=== PATIENT | female | born 1960 | race Caucasian/White ===

== ENCOUNTER → 2019-10-03 10:17 | Outpatient (CLI) | payer OTHER, SELFPAY ==
--- NOTE | ~2019-10-03 | CT_ITS ---
EXAMINATION: CT chest w con DATE: 10/03/2019 10:53 INDICATION: Abnormal chest radiograph, history of melanoma TECHNIQUE: Transaxial computed tomographic images of the chest were obtained after the administration of 75 cc of Omnipaque 350 intravenous contrast. The dose-length product (DLP) was 208.07 mGy-cm. Ite rative reconstruction was used. COMPARISON: 11/21/2011 FINDINGS: The lungs are free of focal airspace opacities. There is mild dependent atelectasis. Trace pleural effusions are present. There is no pneumothorax. No pathologically enlarged thoracic lymph no esthela are identified. The heart size is normal. Fluid attenuation to the liver measuring up to 11 mm in the right hepatic lobe likely represent cysts. There is mild thoracic spondylosis. IMPRESSION: 1. Small pleural effusions, otherwise unremarkable chest CT. Reviewed, dictated and finalized at location A.
[2019-10-03 10:36] LABS: Estimated Glomerular Filt Rate 57
== END ==
PROVIDERS: PCP Physician Assistant; Visit Provider Surgery
DX: R91.8 Other nonspecific abnormal finding of lung field (principal); J90 Pleural effusion, not elsewhere classified
CPT/HCPCS: 36415; 71260; Q9967

== ENCOUNTER → 2019-12-06 07:28 | Outpatient (CLI) | payer BC, SELFPAY ==
--- NOTE | ~2019-12-06 | MM_ITS ---
EXAMINATION: MM screening geovanna BI w jian HISTORY: Screening mammogram TECHNIQUE: Craniocaudal and mediolateral oblique 3-D tomosynthesis images were obtained and synthetic 2-D images were generated. CAD analysis was submitted and interpreted. COMPARISON: 07/13/2018, 07/10/2017, 07/08/2016 bilateral digital screening mammogram examinations BREAST PARENCHYMAL COMPOSITION: There are scattered areas of fibroglandular density. FINDINGS: There is no evidence of suspicious mass, calcification, or architectural distortion to sugg est malignancy in either breast. There has been no suspicious interval change. IMPRESSION: 1. No mammographic evidence of malignancy. 2. Recommend routine screening mammography in one year. BI-RADS Category 1: Negative Reviewed, dictated and finalized at location A.
== END ==
PROVIDERS: PCP Physician Assistant; Visit Provider Obstetrics & Gynecology
DX: Z12.31 Encounter for screening mammogram for malignant neoplasm of breast (principal)
CPT/HCPCS: 77063; 77067

== ENCOUNTER → 2020-12-14 07:23 | Outpatient (CLI) | payer OTHER, SELFPAY ==
--- NOTE | ~2020-12-14 | MM_ITS ---
EXAMINATION: MM screening geovanna BI w jian HISTORY: Screening mammogram TECHNIQUE: Craniocaudal and mediolateral oblique 3-D tomosynthesis images were obtained and synthetic 2-D images were generated. CAD analysis was submitted and interpreted. COMPARISON: 07/11/2019, 07/13/2018, 07/10/2017 bilateral screening mammogram examinations BREAST PARENCHYMAL COMPOSITION: There are scattered areas of fibroglandular density.. FINDINGS: There is no evidence of suspicious mass, calcification, or architectural distortion to sugg est malignancy in either breast. There has been no suspicious interval change. IMPRESSION: 1. No mammographic evidence of malignancy. 2. Recommend routine screening mammography in one year. BI-RADS Category 1: Negative Reviewed, dictated and finalized at location A.
== END ==
PROVIDERS: PCP Physician Assistant; Visit Provider Obstetrics & Gynecology
DX: Z12.31 Encounter for screening mammogram for malignant neoplasm of breast (principal)
CPT/HCPCS: 77063; 77067

== ENCOUNTER 2021-02-06 01:17 | Day surgery (SDC) | payer OTHER, SELFPAY ==
[2021-01-24 14:14] VITALS: BMI 25.8
--- NOTE | 2021-02-05 13:28 | PM.HPGS ---
History of Present Illness History of Present Illness Consent: Risks, benefits, and alternatives have been discussed and questions answered. Patient agrees to proceed with procedure. Chief complaint: family hx of colon ca, neoplasm screening Narrative: Alessandra Alba is a 61 year old female was referred for colon cancers screening. She does have a family history of colon cancer in a grandparent. Also she had 2 polyps removed in 2013 Review of Systems Review of Systems: All systems reviewed & are unremarkable except as noted in HPI and below PMFSH Past Medical History Medical History Diabetes diet controlled Family History Family History Grandparent Family history of malignant neoplasm Carcinoma of colon Mother Family history of lupus erythematosus Other Family history of multiple sclerosis Social History Social History Smoking status: Never smoker Alcohol intake: current Drinks per week: 5 Living arrangements: with family Spiritual care concerns: No Meds Home Medications and Allergies Home Medications Medication Instructions Recorded Confirmed Type No Home Medications 01/24/21 02/06/21 History Allergies Allergy/AdvReac Type Severity Reaction Status Date / Time adhesive Allergy Unknown RASH Verified 02/06/21 08:42 latex Allergy Unknown Rash Verified 02/06/21 08:42 Penicillins Allergy Unknown Hives Verified 02/06/21 08:42 Sulfa (Sulfonamide Allergy Unknown Hives Verified 02/06/21 08:42 Antibiotics) Exam Resp: Auscultation: clear to auscultation bilaterally Cardio: Rate: regular rate Rhythm: regular rhythm GI: GI Palp: Yes Soft to palpation and No Tenderness to palpation present (GI) Assessment and Plan Assessment and plan (1) Colon cancer screening: Code(s): Z12.11 - Encounter for screening for malignant neoplasm of colon Status: Acute Assessment and Plan: Colonoscopy with possible biopsy or polypectomy or cautery or injection of substances.
[2021-02-06 08:43] VITALS: BP 126/104; PULSE 114; RESP 17; TEMP 36.4; O2SAT 98; BMI 26.1
[2021-02-06] MEDS: LACTATED RINGERS 1,000 ML 150 ML IV CONT (08:54)
--- NOTE | 2021-02-06 09:12 | P.PNAN_ITS ---
Anes - Initial Pre Proc Eval Procedure: Operation Date: 02/06/21 10:00 Proposed Procedures p Screening Colonoscopy - Shorty Ayala MD Date/Time: 02/06/21 09:12 Surgeon: Shorty Ayala MD Pre Op Diagnosis: family hx of colon ca, neoplasm screening Patient Data Age: 61 Gender: F Height: 1.73 m Weight: 77.9 kg Last Vital Signs Temp 97.6 F 02/06/21 08:43 Pulse 114 H 02/06/21 08:43 Resp 17 02/06/21 08:43 BP 126/104 H 02/06/21 08:43 Pulse Ox 98 02/06/21 08:43 Allergies Allergy/AdvReac Type Severity Reaction Status Date / Time adhesive Allergy Unknown RASH Verified 02/06/21 08:42 latex Allergy Unknown Rash Verified 02/06/21 08:42 Penicillins Allergy Unknown Hives Verified 02/06/21 08:42 Sulfa (Sulfonamide Allergy Unknown Hives Verified 02/06/21 08:42 Antibiotics) Home Medications Medication Instructions Recorded Confirmed Type No Home Medications 01/24/21 02/06/21 History Patient hx anesthesia problems: none Family hx anesthesia problems: none Results Review: All pre-operative results and documents have been reviewed as part of the pre-operative evaluation. [facility] Past Medical History Medical History (Updated 02/06/21 @ 09:12 by Saul Lomax MD) Diabetes diet controlled Family History Family History (Updated 10/13/13 @ 07:13 by DOCTOR UNKNOWN) Grandparent Family history of malignant neoplasm Carcinoma of colon Mother Family history of lupus erythematosus Other Family history of multiple sclerosis Social History Social History Smoking status: Never smoker Alcohol intake: current Drinks per week: 5 Living arrangements: with family Spiritual care concerns: No Anes - Eval Final PreProcedure Day of Procedure 02/06/21 09:12 Patient weight: normal Heart: regular rate and rhythm Lungs: clear to auscultation Airway: Mallampati scale class II Neurological: alert and oriented Last oral intake: >/= 8 hours ASA classification: III Emergent: no Anesthetic plan: proceed Anesthesia type and monitoring: general GIVS and standard monitoring Results Review: All pre-operative results and documents have been reviewed as part of the pre-operative evaluation. Informed Consent: The patient's anesthetic plan and its attendant risks and benefits were discussed with the patient/family/POA. Questions were solicited and answers provided to the satisfaction of the patient/family/POA.
[2021-02-06 10:10] VITALS: BP 86/51; PULSE 94; RESP 22; O2SAT 96
[2021-02-06 10:20] VITALS: BP 95/59; PULSE 63; RESP 21; O2SAT 97
[2021-02-06 10:30] VITALS: BP 121/74; PULSE 68; RESP 25; O2SAT 98
== END 2021-02-06 10:39 | disposition home or self-care (01) ==
PROVIDERS: PCP Physician Assistant; Visit Provider Internal Medicine Gastroenterology
PROC: 0DJD8ZZ Inspection of Lower Intestinal Tract, Via Natural or Artificial Opening Endoscopic (ICD-10-PCS; CPT 45378; principal; 2021-02-06 10:00)
DX: Z12.11 Encounter for screening for malignant neoplasm of colon (principal); K57.30 Diverticulosis of large intestine without perforation or abscess without bleeding; Z86.010 Personal history of colon polyps; Z80.0 Family history of malignant neoplasm of digestive organs
CPT/HCPCS: 45378; J2704; J7120

== ENCOUNTER → 2022-05-05 07:21 | Outpatient (CLI) | payer OTHER, SELFPAY ==
--- NOTE | ~2022-05-05 | MM_ITS ---
EXAMINATION: MM screening geovanna BI w jian HISTORY: Screening TECHNIQUE: Craniocaudal and mediolateral oblique 3-D tomosynthesis images were obtained and synthetic 2-D images were generated. CAD analysis was submitted and interpreted. COMPARISON: Comparison to multiple prior studies sequentially, with oldest reviewed study dated 07/05. BREAST PARENCHYMAL COMPOSITION: Breast composed of scattered areas of fibroglandular density FINDINGS: There is no evidence of suspicious mass, calcification, or architectural distortion to sugg est malignancy in either breast. There has been no suspicious interval change. IMPRESSION: 1. No mammographic evidence of malignancy. 2. Recommend routine screening mammography in one year. BI-RADS Category 1: Negative Reviewed, dictated and finalized at location A.
== END ==
PROVIDERS: PCP Physician Assistant; Visit Provider Obstetrics & Gynecology
DX: Z12.31 Encounter for screening mammogram for malignant neoplasm of breast (principal)
CPT/HCPCS: 77063; 77067

== ENCOUNTER 2023-06-10 11:12 | Outpatient (CLI) | payer OTHER, SELFPAY ==
--- NOTE | ~2023-06-10 | MM_ITS ---
EXAMINATION: MM screening geovanna BI w jian HISTORY: Screening mammogram TECHNIQUE: Craniocaudal and mediolateral oblique 3-D tomosynthesis images were obtained and synthetic 2-D images were generated. CAD analysis was submitted and interpreted. COMPARISON: 05/05/2022, 12/14/2020 bilateral screening mammogram examinations BREAST PARENCHYMAL COMPOSITION: There are scattered areas of fibroglandular density. FINDINGS: There is no evidence of suspicious mass, calcification, or architectural distortion to sugg est malignancy in either breast. There has been no suspicious interval change. IMPRESSION: 1. No mammographic evidence of malignancy. 2. Recommend routine screening mammography in one year. BI-RADS Category 1: Negative Reviewed, dictated and finalized at location A.
== END 2023-06-10 11:13 ==
LOC: MICIMG 11:13
PROVIDERS: PCP Physician Assistant; Visit Provider Obstetrics & Gynecology
DX: Z12.31 Encounter for screening mammogram for malignant neoplasm of breast (principal)
CPT/HCPCS: 77063; 77067

== ENCOUNTER 2023-10-06 07:02 | Outpatient (CLI) | payer OTHER, SELFPAY ==
--- NOTE | ~2023-10-06 | XR_ITS ---
XR foot RT min 3V 10/06/2023 07:15 Indication: Right foot pain Procedure: 4 views right foot Comparison: No prior studies for comparison. Findings: There is a displaced second metatarsal shaft fracture distally with callus formation. There is approximately one bone width dorsal displacement. No significant angulation. Osteopenia. Lisfranc joint intact. No foreign bodies. Impression: 1: Healing displaced right second metatarsal shaft fracture. Reviewed, dictated and finalized at location B. Impression: 1: Healing displaced right second metatarsal shaft fracture.
== END 2023-10-06 07:03 ==
PROVIDERS: PCP Physician Assistant; Visit Provider Physician Assistant
DX: S92.321A Displaced fracture of second metatarsal bone, right foot, initial encounter for closed fracture (principal); X58.XXXA Exposure to other specified factors, initial encounter
CPT/HCPCS: 73630

== ENCOUNTER 2024-07-29 07:27 | Outpatient (CLI) | payer OTHER, SELFPAY ==
--- NOTE | ~2024-07-29 | MM_ITS ---
EXAMINATION: MM screening geovanna BI w jian HISTORY: Screening TECHNIQUE: Craniocaudal and mediolateral oblique 3-D tomosynthesis images were obtained and synthetic 2-D images were generated. CAD analysis was submitted and interpreted. COMPARISON: Comparison to multiple prior studies sequentially, with oldest reviewed study dated 11/17. BREAST PARENCHYMAL COMPOSITION: Not dense: There are scattered areas of fibroglandular density. FINDINGS: The right breast is stable without evidence for malignancy. There is a new focal asymmetry centrally in the left breast on CC view, middle third, not visualized on MLO view. IMPRESSION: 1. New focal left breast asymmetry seen on CC view only. 2. Additional mammographic views and possible breast ultrasound are recommended. BI-RADS Category 0: Incomplete: Needs additional imaging evaluation. Reviewed, dictated and finalized at location [] IMPRESSION: 1. New focal left breast asymmetry seen on CC view only. 2. Additional mammographic views and possible breast ultrasound are recommended . BI-RADS Category 0: Incomplete: Needs additional imaging evaluation.
--- OUTSIDE RECORDS SUMMARY | 2024-07-29 07:33 | XMS_ITS | Data Portability ---
Author Organization [facility] Tian Cordero Address [address] [place] [address] Care Team Providers Care Pulpwood Buyer Name Role Phone ROSALINO IRIZARRY Primary Care Provider Unavailab le Assessment Encounter Date Assessment Date Assessment LastModified by Organization Details LastModified Time 04/23/2023 04/23/2023 Dr. darryl aguila Mar 2023, pap smear normal mammogram scheduled, due april, due 2025. eye exam UTD with Jose in [place] 2022. no retinopathy Not available 04/23/2023 09:24:00 10/29/2023 10/29/2023 Dr. darryl aguila Mar 2023, pap smear normal mammogram UTD spring colonoscopy 2020, due 2025. eye exam UTD with [facility] in [place] 2022. no retinopathy Not available 10/29/2023 09:26:23 04/28/2024 04/28/2024 Dr. darryl aguila Mar 2023, pap smear normal mammogram UTD spring colonoscopy 2020, due 2025. eye exam UTD with Jose in [place] 2022. no retinopathy Not available 05/16/2024 22:26:44 Plan of Treatment Reminders Order Date Submit Date Provider Last Modified By Organization Details Last Modified Time Details Appointments ANY 15 2024 08:00A M VALENTINO Tucker Not available Not available Not available Lab HbA1c (hemoglob in A1c), blood 2024 025 [facility], [address], [place], [address], 04/28/2024 09:33:56 microalbu min, urine 2024 025 [facility], [address], [place], [address], 04/28/2024 09:33:55 CMP, serum or plasma 2024 025 [facility], [address], [place], [address], 04/28/2024 09:33:56 CBC w/ auto diff 2024 025 [facility], [address], [place], [address], 04/28/2024 09:33:56 CMP, serum or plasma 2024 025 [facility], [address], [place], [address], 04/28/2024 09:33:56 lipid panel, serum 2024 025 [facility], [address], [place], [address], 04/28/2024 09:33:56 measles + mumps + rubella virus IgG panel, QN, serum or plasma 2024 025 [email or web address] [facility], [address], [place], [address], 05/18/2024 10:45:29 HbA1c (hemoglob in A1c), blood 202316/2 024 [email or web address] [facility], [address], [place], [address], 04/27/2024 14:48:10 HbA1c (hemoglob in A1c), blood 2023 025 RODOLFO [facility], [address], [place], [address], 04/26/2024 13:08:29 CMP, serum or plasma 2023 024 [email or web address] [facility], [address], [place], [address], 04/27/2024 14:48:20 CBC w/ auto diff 2023 025 RODOLFO [facility], [address], [place], [address], 04/26/2024 13:08:30 CMP, serum or plasma 2023 025 RODOLFO [facility], [address], [place], [address], 04/26/2024 13:08:26 TSH + free T4, serum 2023 025 GARIBALDI [facility], [address], [place], [address], 04/26/2024 13:08:25 vitamin B12 + folate, serum or blood 2023 025 GARIBALDI [facility], [address], [place], [address], 04/26/2024 13:08:28 lipid panel, serum 2023 024 [email or web address] [facility], [address], [place], [address], 04/27/2024 14:48:15 lipid panel, serum 2023 025 RODOLFO [facility], [address], [place], [address], 04/26/2024 13:08:24 HbA1c (hemoglob in A1c), blood 2023 024 [facility], [address], [place], [address], 10/27/2023 12:14:17 microalbu min, urine 2023 024 [facility], [address], [place], [address], 10/28/2023 10:05:59 CBC w/ auto diff 2023 024 [facility], [address], [place], [address], 10/27/2023 12:14:18 CMP, serum or plasma 2023 024 [facility]DI [facility], [address], [place], [address], 10/27/2023 12:14:15 vitamin B12 + folate, serum or blood 2023 024 [facility], [address], [place], [address], 10/27/2023 12:14:16 TSH + free T4, serum 2023 024 [facility], [address], [place], [address], 10/27/2023 12:14:14 lipid panel, serum 2023 024 [facility], [address], [place], [address], 10/27/2023 12:14:14 Referral None recorded. Procedures None recorded. Surgeries None recorded. Imaging CT, coronary calcium score 2024 025 [facility], [address], [facility] [address], [address], 05/29/2024 16:46:24 DEXA 2023 024 [facility], [address] [place], [address], 11/17/2023 21:29:50 XR, foot, 3 or more view 2023 024 [facility], [address], [facility] [address], [place], [address], 10/06/2023 10:41:12 Medication Orders rosuvasta tin 5 mg tablet 2023 024 [email or web address] [id number], [address], [place], [place], [id number], 10/30/2023 16:54:29 Patient TargetsNo targets recorded. Patient Instructions Encounter Date Encounter Id Patient Instructions Last Modified By Organization Details Last Modified Time 04/28/2024 [id number] A healthy lifestyle: care instructions Not available 04/28/2024 09:33:56 Reason for Referral None Reported. Results Created Date Observation Date Name Description Value Unit Range Abnormal Flag Note LastModifiedBy Organization Detail LastModifiedTime 10/26/1910/27/2023 LIPID PANEL W/ CHOL/ HDL RATIO cholesterol, total 249 mg/dL 100-19 9 above high normal Not Available [facility] ([facility]) [address], [place], [address], 10/27/2023 12:14:14 10/26/1910/27/2023 LIPID PANEL W/ CHOL/ HDL RATIO triglyceride s 106 mg/dL 0-149 Not Available [facility] ([facility]) [address], [place], [address], 10/27/2023 12:14:14 10/26/19 24 10/27/2023 LIPID PANEL W/ CHOL/ HDL RATIO HDL cholesterol 57 mg/dL >39 Not Available [facility] ([facility]) [address] [place], [address], 10/27/2023 12:14:14 10/26/1910/27/2023 LIPID PANEL W/ CHOL/ HDL RATIO VLDL cholesterol gordon 19 mg/dL 5-40 Not Available [facility] ([facility]) [address] [place], [address], 10/27/2023 12:14:14 10/26/1910/27/2023 LIPID PANEL W/ CHOL/ HDL RATIO LDL chol calc ([facility]) 173 mg/dL 0-99 above high normal Not Available [facility] ([facility]) [address] [place], [address], 10/27/2023 12:14:14 10/26/1910/27/2023 LIPID PANEL W/ CHOL/ HDL RATIO T. chol/HDL ratio 4.4 ratio 0.0-4. 4 T. Chol/ HDL Ratio Men Women 1/2 Avg.R isk 3.4 3.3 Avg.R isk 5.0 4.4 2X Avg.R isk 9.6 7.1 3X Avg.R isk 23.4 11.0 Not Available [facility] ([facility]) [address] [place], [address], 10/27/2023 12:14:14 10/26/1910/27/2023 TSH+F REE T4 TSH 1.200 uIU/m L 0.450- 4.500 Not Available [facility] ([facility]) [address] [place], [address], 10/27/2023 12:14:14 10/26/1910/27/2023 TSH+F REE T4 T4,free(dire ct) 1.30 NG/dL 0.82-1 .77 Not Available [facility] ([facility]) [address] [place], [address], 10/27/2023 12:14:14 10/26/19 24 10/27/2023 COMP. METAB OLIC PANEL (14) glucose 103 mg/dL 70-99 above high normal Not Available [facility] ([facility]) [address] [place], [address], 10/27/2023 12:14:15 10/26/19 24 10/27/2023 COMP. METAB OLIC PANEL (14) BUN 13 mg/dL 8-27 Not Available [facility] ([facility]) [address] [place], [address], 10/27/2023 12:14:15 10/26/19 24 10/27/2023 COMP. METAB OLIC PANEL (14) creatinine 0.76 mg/dL 0.57-1 .00 Not Available [facility] ([facility]) [address] [place], [address], 10/27/2023 12:14:15 10/26/19 24 10/27/2023 COMP. METAB OLIC PANEL (14) eGFR 89 mL/mi n/1.7 3 >59 Not Available [facility] ([facility]) [address] [place], [address], 10/27/2023 12:14:15 10/26/19 24 10/27/2023 COMP. METAB OLIC PANEL (14) BUN/creatini ne ratio 17 12-28 Not Available [facility] ([facility]) [address] [place], [address], 10/27/2023 12:14:15 10/26/19 24 10/27/2023 COMP. METAB OLIC PANEL (14) sodium 141 mmol/ L 134-14 4 Not Available [facility] ([facility]) [address] [place], [address], 10/27/2023 12:14:15 10/26/19 24 10/27/2023 COMP. METAB OLIC PANEL (14) potassium 4.1 mmol/ L 3.5-5. 2 Not Available [facility] ([facility]) [address] [place], [address], 10/27/2023 12:14:15 10/26/19 24 10/27/2023 COMP. METAB OLIC PANEL (14) chloride 104 mmol/ L 96-106 Not Available [facility] ([facility]) [address] [place], [address], 10/27/2023 12:14:15 10/26/19 24 10/27/2023 COMP. METAB OLIC PANEL (14) carbon dioxide, total 24 mmol/ L 20-29 Not Available [facility] ([facility]) [address] [place], [address], 10/27/2023 12:14:15 10/26/19 24 10/27/2023 COMP. METAB OLIC PANEL (14) calcium 9.3 mg/dL 8.7-10 .3 Not Available [facility] ([facility]) [address] [place], [address], 10/27/2023 12:14:15 10/26/19 24 10/27/2023 COMP. METAB OLIC PANEL (14) protein, total 7.1 g/dL 6.0-8. 5 Not Available [facility] ([facility]) [address] [place], [address], 10/27/2023 12:14:15 10/26/19 24 10/27/2023 COMP. METAB OLIC PANEL (14) albumin 4.2 g/dL 3.9-4. 9 Not Available [facility] ([facility]) [address] [place], [address], 10/27/2023 12:14:15 10/26/19 24 10/27/2023 COMP. METAB OLIC PANEL (14) globulin, total 2.9 g/dL 1.5-4. 5 Not Available [facility] ([facility]) [address] [place], [address], 10/27/2023 12:14:15 10/26/19 24 10/27/2023 COMP. METAB OLIC PANEL (14) bilirubin, total 0.5 mg/dL 0.0-1. 2 Not Available [facility] ([facility]) [address] [place], [address], 10/27/2023 12:14:15 10/26/19 24 10/27/2023 COMP. METAB OLIC PANEL (14) alkaline phosphatase 103 IU/L 44-121 Not Available [facility] ([facility]) [address] [place], [address], 10/27/2023 12:14:15 10/26/19 24 10/27/2023 COMP. METAB OLIC PANEL (14) AST (SGOT) 13 IU/L 0-40 Not Available [facility] ([facility]) [address] [place], [address], 10/27/2023 12:14:15 10/26/19 24 10/27/2023 COMP. METAB OLIC PANEL (14) ALT (SGPT) 12 IU/L 0-32 Not Available [facility] ([facility]) [address] [place], [address], 10/27/2023 12:14:15 10/26/19 24 10/26/2023 UNABL E TO VOID unable to void Commen t Patie nt unabl e to void. Urine to be colle cted at a later date. Not Available [facility] ([facility]) [address] [place], [address], 10/27/2023 12:14:16 10/26/19 24 10/27/2023 VITAM IN B12 AND FOLAT E vitamin B12 411 pg/mL 232-12 45 Not Available [facility] ([facility]) [address] [place], [address], 10/27/2023 12:14:16 10/26/19 24 10/27/2023 VITAM IN B12 AND FOLAT E folate (folic acid), serum 12.2 NG/mL >3.0 A serum folat e tien ntrat ion of less than 3.1 ng/mL is consi dered to repre sent clini gordon defic iency . Not Available [facility] ([facility]) [address], [place], [address], 10/27/2023 12:14:16 10/26/19 24 10/27/2023 HEMOG LOBIN A1C hemoglobin A1C 6.3 % 4.8-5. 6 above high normal Predi abete s: 5.7 - 6.4 Diabe tom: >6.4 Glyce anny contr ol for adult s with diabe tom: <7.0 Not Available [facility] ([facility]) [address] [place], [address], 10/27/2023 12:14:17 10/26/1910/27/2023 CBC WITH DIFFE RENTI AL/PL ATELE T WBC 6.0 x10e3 /uL 3.4-10 .8 Not Available [facility] ([facility]) [address], [place], [address], 10/27/2023 12:14:18 10/26/19 24 10/27/2023 CBC WITH DIFFE RENTI AL/PL ATELE T RBC 5.16 x10e6 /uL 3.77-5 .28 Not Available [facility] ([facility]) [address], [place], [address], 10/27/2023 12:14:18 10/26/19 24 10/27/2023 CBC WITH DIFFE RENTI AL/PL ATELE T hemoglobin 14.8 g/dL 11.1-1 5.9 Not Available [facility] ([facility]) [address], [place], [address], 10/27/2023 12:14:18 10/26/19 24 10/27/2023 CBC WITH DIFFE RENTI AL/PL ATELE T hematocrit 46.1 % 34.0-4 6.6 Not Available [facility] ([facility]) [address], [place], [address], 10/27/2023 12:14:18 10/26/1910/27/2023 CBC WITH DIFFE RENTI AL/PL ATELE T MCV 89 fL 79-97 Not Available [facility] ([facility]) [address], [place], [address], 10/27/2023 12:14:18 10/26/1910/27/2023 CBC WITH DIFFE RENTI AL/PL ATELE T MCH 28.7 pg 26.6-3 3.0 Not Available [facility] ([facility]) [address], [place], [address], 10/27/2023 12:14:18 10/26/1910/27/2023 CBC WITH DIFFE RENTI AL/PL ATELE T MCHC 32.1 g/dL 31.5-3 5.7 Not Available [facility] ([facility]) [address], [place], [address], 10/27/2023 12:14:18 10/26/1910/27/2023 CBC WITH DIFFE RENTI AL/PL ATELE T RDW 13.0 % 11.7-1 5.4 Not Available [facility] ([facility]) [address] [place], [address], 10/27/2023 12:14:18 10/26/1910/27/2023 CBC WITH DIFFE RENTI AL/PL ATELE T platelets 254 x10e3 /uL 150-45 0 Not Available [facility] ([facility]) [address] [place], [address], 10/27/2023 12:14:18 10/26/19 24 10/27/2023 CBC WITH DIFFE RENTI AL/PL ATELE T neutrophils 37 % notest ab. Not Available [facility] ([facility]) [address], [place], [address], 10/27/2023 12:14:18 10/26/19 24 10/27/2023 CBC WITH DIFFE RENTI AL/PL ATELE T lymphs 49 % notest ab. Not Available [facility] ([facility]) [address], [place], [address], 10/27/2023 12:14:18 10/26/19 24 10/27/2023 CBC WITH DIFFE RENTI AL/PL ATELE T monocytes 9 % notest ab. Not Available [facility] ([facility]) [address], [place], [address], 10/27/2023 12:14:18 10/26/19 24 10/27/2023 CBC WITH DIFFE RENTI AL/PL ATELE T eos 4 % notest ab. Not Available [facility] ([facility]) [address], [place], [address], 10/27/2023 12:14:18 10/26/19 24 10/27/2023 CBC WITH DIFFE RENTI AL/PL ATELE T basos 1 % notest ab. Not Available [facility] ([facility]) [address], [place], [address], 10/27/2023 12:14:18 10/26/19 24 10/27/2023 CBC WITH DIFFE RENTI AL/PL ATELE T neutrophils (absolute) 2.2 x10e3 /uL 1.4-7. 0 Not Available [facility] ([facility]) [address], [place], [address], 10/27/2023 12:14:18 10/26/19 24 10/27/2023 CBC WITH DIFFE RENTI AL/PL ATELE T lymphs (absolute) 2.9 x10e3 /uL 0.7-3. 1 Not Available [facility] ([facility]) [address], [place], [address], 10/27/2023 12:14:18 10/26/19 24 10/27/2023 CBC WITH DIFFE RENTI AL/PL ATELE T monocytes(ab solute) 0.5 x10e3 /uL 0.1-0. 9 Not Available [facility] ([facility]) [address], [place], [address], 10/27/2023 12:14:18 10/26/1910/27/2023 CBC WITH DIFFE RENTI AL/PL ATELE T eos (absolute) 0.2 x10e3 /uL 0.0-0. 4 Not Available [facility] ([facility]) [address], [place], [address], 10/27/2023 12:14:18 10/26/19 24 10/27/2023 CBC WITH DIFFE RENTI AL/PL ATELE T baso (absolute) 0.1 x10e3 /uL 0.0-0. 2 Not Available [facility] ([facility]) [address], [place], [address], 10/27/2023 12:14:18 10/26/19 24 10/27/2023 CBC WITH DIFFE RENTI AL/PL ATELE T immature granulocytes 0 % notest ab. Not Available [facility] ([facility]) [address], [place], [address], 10/27/2023 12:14:18 10/26/1910/27/2023 CBC WITH DIFFE RENTI AL/PL ATELE T immature grans (abs) 0.0 x10e3 /uL 0.0-0. 1 Not Available [facility] ([facility]) [address] [place], [address], 10/27/2023 12:14:18 10/27/19 24 10/28/2023 ALBUM IN, RANDO M URINE albumin, urine 3.8 ug/mL notest ab. Not Available [facility] ([facility]) [address], [place], [address], 10/28/2023 08:33:24 04/26/19 25 04/26/2024 LIPID PANEL W/ CHOL/ HDL RATIO cholesterol, total 235 mg/dL 100-19 9 above high normal Not Available [facility] ([facility]) [address] [place], [address], 04/26/2024 13:08:24 04/26/19 25 04/26/2024 LIPID PANEL W/ CHOL/ HDL RATIO triglyceride s 98 mg/dL 0-149 Not Available [facility] ([facility]) [address], [place], [address], 04/26/2024 13:08:24 04/26/19 25 04/26/2024 LIPID PANEL W/ CHOL/ HDL RATIO HDL cholesterol 58 mg/dL >39 Not Available [facility] ([facility]) [address] [place], [address], 04/26/2024 13:08:24 04/26/19 25 04/26/2024 LIPID PANEL W/ CHOL/ HDL RATIO VLDL cholesterol gordon 17 mg/dL 5-40 Not Available [facility] ([facility]) [address] [place], [address], 04/26/2024 13:08:24 04/26/19 25 04/26/2024 LIPID PANEL W/ CHOL/ HDL RATIO LDL chol calc ([facility]) 160 mg/dL 0-99 above high normal Not Available [facility] ([facility]) [address] [place], [address], 04/26/2024 13:08:24 04/26/19 25 04/26/2024 LIPID PANEL W/ CHOL/ HDL RATIO T. chol/HDL ratio 4.1 ratio 0.0-4. 4 T. Chol/ HDL Ratio Men Women 1/2 Avg.R isk 3.4 3.3 Avg.R isk 5.0 4.4 2X Avg.R isk 9.6 7.1 3X Avg.R isk 23.4 11.0 Not Available [facility] ([facility]) [address] [place], [address], 04/26/2024 13:08:24 04/26/19 25 04/26/2024 TSH+F REE T4 TSH 1.180 uIU/m L 0.450- 4.500 Not Available [facility] ([facility]) [address] [place], [address], 04/26/2024 13:08:25 04/26/19 25 04/26/2024 TSH+F REE T4 T4,free(dire ct) 1.35 NG/dL 0.82-1 .77 Not Available [facility] ([facility]) [address] [place], [address], 04/26/2024 13:08:25 04/26/19 25 04/26/2024 COMP. METAB OLIC PANEL (14) glucose 111 mg/dL 70-99 above high normal Not Available [facility] ([facility]) [address] [place], [address], 04/26/2024 13:08:26 04/26/19 25 04/26/2024 COMP. METAB OLIC PANEL (14) BUN 14 mg/dL 8-27 Not Available [facility] ([facility]) [address] [place], [address], 04/26/2024 13:08:26 04/26/19 25 04/26/2024 COMP. METAB OLIC PANEL (14) creatinine 0.76 mg/dL 0.57-1 .00 Not Available [facility] ([facility]) [address] [place], [address], 04/26/2024 13:08:26 04/26/19 25 04/26/2024 COMP. METAB OLIC PANEL (14) eGFR 89 mL/mi n/1.7 3 >59 Not Available [facility] ([facility]) [address], [place], [address], 04/26/2024 13:08:26 04/26/19 25 04/26/2024 COMP. METAB OLIC PANEL (14) BUN/creatini ne ratio 18 12-28 Not Available [facility] ([facility]) [address] [place], [address], 04/26/2024 13:08:26 04/26/19 25 04/26/2024 COMP. METAB OLIC PANEL (14) sodium 142 mmol/ L 134-14 4 Not Available [facility] ([facility]) [address] [place], [address], 04/26/2024 13:08:26 04/26/19 25 04/26/2024 COMP. METAB OLIC PANEL (14) potassium 4.4 mmol/ L 3.5-5. 2 Not Available [facility] ([facility]) [address] [place], [address], 04/26/2024 13:08:26 04/26/19 25 04/26/2024 COMP. METAB OLIC PANEL (14) chloride 105 mmol/ L 96-106 Not Available [facility] ([facility]) [address] [place], [address], 04/26/2024 13:08:26 04/26/19 25 04/26/2024 COMP. METAB OLIC PANEL (14) carbon dioxide, total 22 mmol/ L 20-29 Not Available [facility] ([facility]) [address] [place], [address], 04/26/2024 13:08:26 04/26/19 25 04/26/2024 COMP. METAB OLIC PANEL (14) calcium 9.6 mg/dL 8.7-10 .3 Not Available [facility] ([facility]) [address], [place], [address], 04/26/2024 13:08:26 04/26/19 25 04/26/2024 COMP. METAB OLIC PANEL (14) protein, total 7.0 g/dL 6.0-8. 5 Not Available [facility] ([facility]) [address], [place], [address], 04/26/2024 13:08:26 04/26/19 25 04/26/2024 COMP. METAB OLIC PANEL (14) albumin 4.1 g/dL 3.9-4. 9 Not Available [facility] ([facility]) [address], [place], [address], 04/26/2024 13:08:26 04/26/19 25 04/26/2024 COMP. METAB OLIC PANEL (14) globulin, total 2.9 g/dL 1.5-4. 5 Not Available [facility] ([facility]) [address] [place], [address], 04/26/2024 13:08:26 04/26/19 25 04/26/2024 COMP. METAB OLIC PANEL (14) bilirubin, total 0.5 mg/dL 0.0-1. 2 Not Available [facility] ([facility]) [address] [place], [address], 04/26/2024 13:08:26 04/26/19 25 04/26/2024 COMP. METAB OLIC PANEL (14) alkaline phosphatase 107 IU/L 44-121 Not Available [facility] ([facility]) [address] [place], [address], 04/26/2024 13:08:26 04/26/19 25 04/26/2024 COMP. METAB OLIC PANEL (14) AST (SGOT) 16 IU/L 0-40 Not Available [facility] ([facility]) [address] [place], [address], 04/26/2024 13:08:26 04/26/19 25 04/26/2024 COMP. METAB OLIC PANEL (14) ALT (SGPT) 12 IU/L 0-32 Not Available [facility] ([facility]) [address] [place], [address], 04/26/2024 13:08:26 04/26/19 25 04/26/2024 VITAM IN B12 AND FOLAT E vitamin B12 476 pg/mL 232-12 45 Not Available [facility] ([facility]) [address] [place], [address], 04/26/2024 13:08:27 04/26/19 25 04/26/2024 VITAM IN B12 AND FOLAT E folate (folic acid), serum 11.2 NG/mL >3.0 A serum folat e tien ntrat ion of less than 3.1 ng/mL is consi dered to repre sent clini gordon defic iency . Not Available [facility] ([facility]) [address], [place], [address], 04/26/2024 13:08:27 04/26/19 25 04/26/2024 HEMOG LOBIN A1C hemoglobin A1C 6.5 % 4.8-5. 6 above high normal Predi abete s: 5.7 - 6.4 Diabe tom: >6.4 Glyce anny contr ol for adult s with diabe tom: <7.0 Not Available [facility] ([facility]) [address] [place], [address], 04/26/2024 13:08:29 04/26/19 25 04/26/2024 CBC WITH DIFFE RENTI AL/PL ATELE T WBC 5.9 x10e3 /uL 3.4-10 .8 Not Available [facility] ([facility]) [address] [place], [address], 04/26/2024 13:08:30 04/26/19 25 04/26/2024 CBC WITH DIFFE RENTI AL/PL ATELE T RBC 5.31 x10e6 /uL 3.77-5 .28 above high normal Not Available [facility] ([facility]) [address] [place], [address], 04/26/2024 13:08:30 04/26/19 25 04/26/2024 CBC WITH DIFFE RENTI AL/PL ATELE T hemoglobin 15.0 g/dL 11.1-1 5.9 Not Available [facility] ([facility]) [address] [place], [address], 04/26/2024 13:08:30 04/26/19 25 04/26/2024 CBC WITH DIFFE RENTI AL/PL ATELE T hematocrit 46.2 % 34.0-4 6.6 Not Available [facility] ([facility]) [address] [place], [address], 04/26/2024 13:08:30 04/26/19 25 04/26/2024 CBC WITH DIFFE RENTI AL/PL ATELE T MCV 87 fL 79-97 Not Available [facility] ([facility]) [address] [place], [address], 04/26/2024 13:08:30 04/26/19 25 04/26/2024 CBC WITH DIFFE RENTI AL/PL ATELE T MCH 28.2 pg 26.6-3 3.0 Not Available [facility] ([facility]) [address] [place], [address], 04/26/2024 13:08:30 04/26/19 25 04/26/2024 CBC WITH DIFFE RENTI AL/PL ATELE T MCHC 32.5 g/dL 31.5-3 5.7 Not Available [facility] ([facility]) [address] [facility] [place], [address], 04/26/2024 13:08:30 04/26/19 25 04/26/2024 CBC WITH DIFFE RENTI AL/PL ATELE T RDW 13.1 % 11.7-1 5.4 Not Available [facility] ([facility]) [address] [facility], [place], [address], 04/26/2024 13:08:30 04/26/19 25 04/26/2024 CBC WITH DIFFE RENTI AL/PL ATELE T platelets 260 x10e3 /uL 150-45 0 Not Available [facility] ([facility]) [address], [place], [address], 04/26/2024 13:08:30 04/26/19 25 04/26/2024 CBC WITH DIFFE RENTI AL/PL ATELE T neutrophils 36 % notest ab. Not Available [facility] ([facility]) [address], [place], [address], 04/26/2024 13:08:30 04/26/19 25 04/26/2024 CBC WITH DIFFE RENTI AL/PL ATELE T lymphs 51 % notest ab. Not Available [facility] ([facility]) [address], [place], [address], 04/26/2024 13:08:30 04/26/19 25 04/26/2024 CBC WITH DIFFE RENTI AL/PL ATELE T monocytes 8 % notest ab. Not Available [facility] ([facility]) [address], [place], [address], 04/26/2024 13:08:30 04/26/19 25 04/26/2024 CBC WITH DIFFE RENTI AL/PL ATELE T eos 4 % notest ab. Not Available [facility] ([facility]) [address], [place], [address], 04/26/2024 13:08:30 03/10/20 25 04/26/2024 CBC WITH DIFFE RENTI AL/PL ATELE T basos 1 % notest ab. Not Available [facility] ([facility]) [address], [place], [address], 04/26/2024 13:08:30 04/26/19 25 04/26/2024 CBC WITH DIFFE RENTI AL/PL ATELE T neutrophils (absolute) 2.1 x10e3 /uL 1.4-7. 0 Not Available [facility] ([facility]) [address], [place], [address], 04/26/2024 13:08:30 04/26/19 25 04/26/2024 CBC WITH DIFFE RENTI AL/PL ATELE T lymphs (absolute) 2.9 x10e3 /uL 0.7-3. 1 Not Available [facility] ([facility]) [address] [place], [address], 04/26/2024 13:08:30 04/26/19 25 04/26/2024 CBC WITH DIFFE RENTI AL/PL ATELE T monocytes(ab solute) 0.5 x10e3 /uL 0.1-0. 9 Not Available [facility] ([facility]) [address] [place], [address], 04/26/2024 13:08:30 04/26/19 25 04/26/2024 CBC WITH DIFFE RENTI AL/PL ATELE T eos (absolute) 0.3 x10e3 /uL 0.0-0. 4 Not Available [facility] ([facility]) [address] [place], [address], 04/26/2024 13:08:30 04/26/19 25 04/26/2024 CBC WITH DIFFE RENTI AL/PL ATELE T baso (absolute) 0.1 x10e3 /uL 0.0-0. 2 Not Available [facility] ([facility]) [address] [place], [address], 04/26/2024 13:08:30 04/26/19 25 04/26/2024 CBC WITH DIFFE RENTI AL/PL ATELE T immature granulocytes 0 % notest ab. Not Available [facility] ([facility]) [address], [place], [address], 04/26/2024 13:08:30 04/26/19 25 04/26/2024 CBC WITH DIFFE RENTI AL/PL ATELE T immature grans (abs) 0.0 x10e3 /uL 0.0-0. 1 Not Available [facility] ([facility]) [address], [place], [address], 04/26/2024 13:08:30 06/10/19 24 06/10/2023 MAMMO , scree natanael, bilat eral No observ ation record ed. [email or web address] [facility] [address], [place], [address], 06/10/2023 16:22:27 10/06/19 24 10/06/2023 XR, foot, 3 or more view No observ ation record ed. [facility] [address], [place], [address], 10/06/2023 15:05:26 11/17/19 24 11/17/2023 DEXA No observ ation record ed. [facility] [address], [address], 04/28/2024 09:09:08 05/30/1905/27/2024 CT, coron hiwot calci um score No observ ation record ed. [facility] [address] [place], [address], 05/30/2024 16:07:55 Result Notes None recorded. Problems Name Problem SNOMED Code Status Onset Date Resolution Date Notes Provider Name and Address Organization Details Recorded Time Type 2 diabetes mellitus 71341373 Active 2023 Yennyjulia Crandall null, [place] - [facility] 4 09:56:25 Body mass index 25-29 - overweight 690751609 Active 2023 Karen García MA null, [place] - [facility] 4 09:39:06 Overweight 317007094 Active 2023 VALENTINO Tucker Attn: Accountin g,[address] [facility], [place], [address], [facility] - [facility] 4 15:24:24 Closed fracture of second metatarsal bone 54443103 Active 2023 VALENTINO Tucker Attn: Accountin g,[address] [facility], [place], [address], [facility] - [facility] 4 15:24:45 Hyperlipidemia 71012662 Active 2023 VALENTINO Tucker Attn: Accountin g,[address] [facility], [place], [address], [place] - [facility] 4 15:24:57 Well controlled type 2 diabetes mellitus 916150423 Active 2023 VALENTINO Tucker Attn: Accountin g,[address] [facility], [place], [address], [place] [facility] 4 15:25:21 Long-term drug therapy Active 2024 VALENTINO Tucker Attn: Jaminmarion g,[address] [facility], [place], [address], [place] - [facility] 5 22:27:31 Problem Notes None recorded. Procedures Surgical History Date Name Laterality Status Provider Name and Address Organization Details Recorded Time excision of melanoma completed Yenny Crandall [place] - [facility] 04/23/2023 09:05:45 Imaging Results None recorded. Procedure Notes None recorded. Medical Equipment None Reported. Allergies Allergen ID Allergen Name Allergen Category Reaction Reaction Severity Criticality Documentation Date Start Date Code Code System Note Provider Name and Address Organization Details Recorded Time 508521 Substance with sulfonami de structure and antibacte rial mechanism of action (substanc e) medicatio n Not available Not available Not available 04/23/2023 53485 8003 SNOMED Yennyayden Crandall naye [facility] 4 09:03:12 707749 Product containin g penicilli n (product) medicatio n Not available Not available Not available 04/23/2023 12986 8001 SNOMED Yenny Rodriguezman naye [facility] 4 09:03:17 425430 latex environme nt,medica tion Not available Not available Not available 04/23/2023 02096 91 RxNorm Yenny Crandall naye [facility] 4 09:03:22 Medications Name Sig Start Date Stop Date Status Note LastModified by Organization Details LastModified Time clindamycin HCl 300 mg capsule TAKE 1 CAPSULE BY MOUTH THREE TIMES DAILY 04/22 completed Not Available Not Available Not Available triamcinolo ne acetonide 0.1 % topical cream active Not Available Not Available Not Available rosuvastati n 5 mg tablet Take 1 tablet every day by oral route at bedtime. 2023 active Not Available Not Available Not Avai lable nitrofurant oin monohydrate /macrocryst als 100 mg capsule TAKE 1 CAPSULE BY MOUTH NEEDED POST COITALLY 04/28 completed Not Available Not Available Not Available Vitals Date Recorded Body weight Respiratory rate Heart rate Body mass index (BMI) Body height Systolic blood pressure Diastolic blood pressure Provider Name and Address Organization Details Last Updated DateTime 4 15293.1 6 g 16 /min 108 /min 26.3 kg/m2 175.26 cm 129 mm[Hg] 78 mm[Hg] Yenny Crandall [place] - [facility] 4 09:02:53 Date Recorded Body height Provider Name an d Address Organization Details Last Updated DateTime 04/28/2024 175.26 cm Yenny Crandall [facility] 04/29/19 25 08:55:51 Date Recorded Body mass index (BMI) Body weight Heart rate Oxygen saturation Oxygen saturation in Arterial blood by Pulse oximetry Systolic blood pressure Diastolic blood pressure Provider Name and Address Organization Details Last Updated DateTime 5 26.5 kg/m2 21279.7 5 g 70 /min 99 % 99 % 126 mm[Hg] 68 mm[Hg] Darrin Peña MA [facility] 5 09:04:50 Date Recorded Body height Body mass index (BMI) Body weight Heart rate Oxygen saturation Oxygen saturation in Arterial blood by Pulse oximetry Systolic blood pressure Diastolic blood pressure Provider Name and Address Organization Details Last Updated DateTime 4 175.26 cm 25.7 kg/m2 52985.5 g 78 /min 98 % 98 % 132 mm[Hg] 70 mm[Hg] Oanh Mancia MA [facility] 4 17:31:44 Date Recorded Systolic blood pressure Diastolic blood pressure Provider Name and Address Organization Details Last Updated DateTime 10/29/2023 120 mm[Hg] 80 mm[Hg] VALENTINO Tucker Attn: Accounting,[address] [place], [address], [facility] 10/29/2023 09:25:50 Date Recorded Body height Body mass index (BMI) Body weight Respiratory rate Oxygen saturation Oxygen saturation in Arterial blood by Pulse oximetry Heart rate Systolic blood pressure Diastolic blood pressure Provider Name and Address Organization Details Last Updated DateTime 4 175.26 cm 26.3 kg/m2 09680.5 9 g 18 /min 97 % 97 % 64 /min 128 mm[Hg] 82 mm[Hg] Karen García MA [facility] 4 08:57:16 Social History Question Answer Notes LastModified by Organizat ion Details LastModified Time Tobacco Smoking Status Never Smoker Yenny Goodman yancey, [facility] 04/23/2023 09:04:24 Do You Have An Advance Directive? Yes Information not available 04/23/2023 Are You Blind Or Do You Have Difficulty Seeing? Yes Reading Glasses [email or web address] Information not available 04/23/2023 What Is Your Level Of Caffeine Consumption? Heavy [email or web address] Information not available 04/23/2023 In The 14 Days Before Symptom Onset, Have You Had Close Contact With A Laboratory-confir [facility] COVID-19 While That Case Was Ill? No [email or web address] Information not available 04/23/2023 In The 14 Days Before Symptom Onset, Have You Had Close Contact With A Person Who Is Under Investigation For COVID-19 While That Person Was Ill? No [email or web address] Information not available 04/23/2023 Have You Been To An Area Known To Be High Risk For COVID-19? No [email or web address] Information not available 04/23/2023 Are You Deaf Or Do You Have Serious Difficulty Hearing? No [email or web address] Information not available 04/23/2023 What Type Of Diet Are You Following? REGULAR [email or web address] Information not available 04/23/2023 Are There Any Guns Present In Your Home? Yes Information not available 04/23/2023 What Was The Date Of Your Most Recent Tobacco Screening? 04/28/2024 [email or web address] Information not available 04/28/2024 What Is Your Relationship Status? [email or web address] Information not available 04/23/2023 Do You Use Your Seat Belt Or Car Seat Routinely? Yes [email or web address] Information not available 04/23/2023 Do You Have Smoke And Carbon Monoxide Detectors In Your Home? Yes [email or web address] Information not available 04/23/2023 Do You Use Sunscreen Routinely? Yes [email or web address] Information not available 04/23/2023 Has Tobacco Cessation Counseling Been Provided? No [email or web address] Information not available 10/29/2023 Sex: Female Functional Status Question Answer Note LastModified by Organizat ion Details LastModified Time Do you use any illicit or recreational drugs? No [email or web address] Information not available 04/23/2023 Do you or have you ever used any other forms of tobacco or nicotine? No [email or web address] Information not available 04/23/2023 What is your level of alcohol consumption? Occasional [email or web address] Information not available 04/23/2023 Are you currently employed? No [email or web address] Information not available 04/23/2023 Are you able to care for yourself? Yes [email or web address] Information n ot available 04/23/2023 What is your exercise level? Moderate [email or web address] Information not available 04/23/2023 Mental Status Question Answer Note LastModified by Organization D etails LastModified Time Do you feel stressed (tense, restless, nervous, or anxious, or unable to sleep at night)? [id number] [facility] Information not available 10/05/2023 Family History Relationship Description Onset Age of this Age Resolved Age Notes LastModified by Organization Details LastModified Time Mother Lupus erythematosu s michael Not available 04/22 09:03:58 Mother Asthma [email or web address] Not available 04/23/2023 12:49:54 Mother Malignant tumor of breast [email or web address] Not available 2023 12:50:03 Father History of heart disorder Not available 04/22 09:04:10 Medical History Condition Response Coronary Artery Disease N Other N Atrial Fibrillation N High Blood Pressure N Thyroid Problems N Kidney or Bladder Problems N Depression N COPD N Blood Clots N GI Problems N Skin Problems Y Anemia N Heart Attack (HI) N Anxiety Disorder N Diabetes N Muscle, Joint, or Bone Problems N Seizures/Epilepsy N Acid Reflux (GERD) N Stroke N Allergies Y Asthma Y High Cholesterol Y Hepatitis N Liver Disease N Headaches N Osteoporosis N Heart Failure N Gynecological History Statement/Question Response Menses Monthly N Obstetrics History GPAL:G 0 P 0 0 0 0 Immunizations Vaccine Type Date Status Note Provider Nam e and Address Organization Details Recorded Time Influenza, MDCK, quadrivalent, PF 2 completed ELIZABETH [place], [place] - [facility] 04/28/2024 09:03:08 Influenza, MDCK, quadrivalent, PF 3 completed ELIZAB[place] [facility] 04/28/2024 09:03:08 zoster recombinant 1 ELIZABETH [place], [place] [facility] 04/28/2024 09:03:08 MMR 9 completed ELIZ[place] [facility] 04/28/2024 09:03:08 COVID-19, mRNA, LNP-S, PF, 30 mcg/0.3 mL dose 1 ELIZABETH [place] [facility] 04/28/2024 09:03:08 COVID-19, mRNA, LNP-S, bivalent, PF, 30 mcg/0.3 mL dose 2 EL[place] [facility] 04/28/2024 09:03:08 COVID-19, mRNA, LNP-S, PF, sanjuanita-sucrose, 30 mcg/0.3 mL 3 completed Darrin Peña [place], [place] [facility] 04/28/2024 09:03:08 influenza, unspecified formulation 8 completed Darrin Pe[place] [facility] 04/28/2024 09:03:08 influenza, unspecified formulation 4 completed Darrin Pe[place] [facility] 04/28/2024 09:03:08 influenza, unspecified formulation 2 completed ELIZAB[place] [facility] 04/28/2024 09:03:08 Influenza, split virus, trivalent, preservative 1 completed EL[place] [facility] 04/28/2024 09:03:08 Hep A, adult 6 completed Darrin Pe[place] [facility] 04/28/2024 09:03:08 influenza, unspecified formulation 4 completed Leilani Martin LPN [place] [facility] 05/06/2024 11:00:51 SARS-COV-2 (COVID-19) vaccine, UNSPECIFIED 4 completed Leilani [place] LPN [place] [facility] 05/06/2024 11:01:06 Tdap 5 completed Leilani [place] LPN [place] [facility] 05/06/2024 11:02:32 Respiratory syncytial virus (RSV) MAB, unspecified 3 completed Leilani [place] LPN [place] [facility] 05/18/2024 10:44:35 Past Encounters Encounter ID Performer Location Encounter Start Date Encounter Closed Date Diagnosis/Indication Diagnosis SNOMED-CT Code Diagnosis ICD10 Code Diagnosis Note [id number] Sudheer Hirsch MD [facility] [address] [place] [address] 04/23/2023 08:54:19 04/23/2023 09:55:42 Well controlled type 2 diabetes mellitus 777277370 E11.9 6.2% a1c. diet and exercise controlled . check next lab in oct. Hyperlipidemia 96218560 E78.5 LDL 163, HDL 58, patient does not want to start statin therapy. she is aware of diabetic risk reductions recommenda tions. Long-term drug therapy 281587178 Z79.899 cbc, cmp, b12, folate and thyroid panel due in Oct. heal th examination 867552864 Z00.01 wellness exam completed. labs ordered for october. current labs reviewed that patient brought from her recent portal. [id number] Sudheer Hirsch MD [facility] [address] [place] [address] 10/05/2023 17:16:06 10/05/2023 17:43:05 Pain in right foot 1978995164 61206 M79.671 Check x-ray of the right foot three-view to evaluate for any stress fracture or soft tissue abnormalit ies. [id number] Sudheer Hirsch MD [facility] [address] [place] [address] 10/29/2023 08:47:13 10/29/2023 10:53:00 Closed fracture of second metatarsal bone 39893538 S92.321D due for baseline DEXA scan. Well contr olled type 2 diabetes mellitus 421111685 E11.9 6.3% A1c stable diet and exercise controlled repeat labs in January and April. Hyperlipidemia 16879361 E78.5 LDL 173, HDL 57. Patient is agreeable to low-dose rosuvastat in 5 mg at bedtime with repeat lipid in January and again in April. Ten year risk calculatio n does describe need for statin therapy, discussed this 10 year risk calculatio n with her Long-term drug therapy 443984647 Z79.899 Current labs have been reviewed and the next set of labs will be due in April before next appointmen t Body mass index 25-29 - overweight 056148038 Z68.26 BMI is 26.3 [id number] Sudheer Hirsch MD [facility] [address] [place] [address] 04/28/2024 08:48:45 04/28/2024 10:59:52 Body mass index 25-29 - overweight 385092191 Z68.26 BMI is 26.5 Overweight 878279962 E66 .3 Well contr olled type 2 diabetes mellitus 329616294 E11.9 6.5% a1c. Stable diet controlled , repeat labs in November Hyperlipidemia 45165972 E78.5 LDL 160, trigs 98, HDL 58, Totoal 235. Patient does not want to take statin therapy. We have decided to pursue CT coronary calcium scoring instead. We will await results to determine coronary risk and repeat fasting lipids in November Long-term drug therapy 505044557 Z79.899 Next lab set will be ordered in November examination 815014042 Z00.01 wellness exam completed. Screening procedure 2012 5006 Z13.9 Patient also would like an MMR titer Health Concerns Section Related Observation LastModified by Organization Detai ls LastModified Time None Recorded Concern Status LastModified by Organization Details LastModified Time None Recorded Advance Directives Directive Y: Payers Insurance Date Sequence Insurance Name Policy Number Policy Fatima Covered Member ID Fatima Member ID Guarantor Name 10/17/2023 1 FOR LIFE () Sudheer Alba [id number] Alessandra Alba 05/18/2024 1 [employer] [place] () Alessandra Alba [id number] Alessandra Alba 05/18/2024 1 [employer] [place] ( - PPO) Sudheer Alba [id number] Alessandra Alba 04/28/2024 1 [facility] () Alessandra Alba [id number] Alessandra Alba Notes Date Note Type Note Provider Name and Address Organization Details Recorded Time 04/23/2023 text/html DiabetesReported bypatient.Notes:dietar y and exercise management for diabetes.Generic HPI TemplateReported bypatient.Notes:Pt is here to get re established. No chronic meds. She does have her labs w/her.HyperlipidemiaRe ported bypatient.Notes:pt has ran with High HDL but also higher LDL, ratios have been stable and she has preferred no medication therapy. VALENTINO Tucker Attn: Accounting,[address] [facility], [place], [address], [facility] 05/03/2023 19:30:39 10/05/2023 text/html Musculoskeletal PainReported bypatient.Location:[facility] foot Quality:sharp Severity:worsening Duration:present <1 month Timing:constant Alleviating factors:rest Aggravating factors:movement/posit ioning Associated Symptoms:no fever; no weak limbs; no tingling; no numbness of the legs/feetNotes:Patient started having right foot pain and swelling [place]. She was still able to get around and ambulate on her trip but she did have pain and bruising and swelling. She had absolutely no injury and nothing fell on the foot so she is not sure what caused the symptoms and is here for evaluation. VALENTINO Tucker Attn: Accounting,[address] [facility], [place], [address], [facility] 10/12/2023 22:10:06 10/29/2023 text/html DiabetesReported bypatient.Notes:dietar y and exercise management for diabetes. A1c is up to 6.3%HyperlipidemiaRepo rted bypatient.Notes:pt has ran with High HDL but also higher LDL, ratios have been stable and she has preferred no medication therapy. Patient has seen Podiatry for recent foot fracture VALENTINO Tucker Attn: Accounting,[address] [facility], [place], [address], [facility] 11/15/2023 15:25:37 04/28/2024 text/html DiabetesReported bypatient.Notes:dietar y and exercise management for diabetes. A1c is up to 6.3%HyperlipidemiaRepo rted bypatient.Notes:pt has ran with High HDL but also higher LDL, ratios have been stable and she has preferred no medication therapy. VALENTINO Tucker Attn: Accounting,[address] [facility], [place], [address], [facility] 05/16/2024 22:28:02 OBGyn Episode No OBEpisode recorded.
--- OUTSIDE RECORDS SUMMARY | 2024-07-29 07:33 | XMS_ITS | Data Portability ---
Author Organization [facility], Main Office Address [address] [place] [address] Assessment No assessment recorded. Plan of Treatment Reminders Order Date Submit Date Provider Last Modified By Organization Details Last Modified Time Details Appointments None recorded . Lab HbA1c (hemoglo bin A1c), blood 023 02/20/19 24 [facility], [address], [place], [address], 4 17:51:32 CMP, serum or plasma 023 02/20/19 24 [facility], [address], [place], [address], 4 17:51:32 CBC w/ auto diff 023 02/20/19 24 [facility], [address], [place], [address], 4 17:51:32 lipid panel, serum 023 02/20/19 24 [email or web address] [facility], [address], [place], [address], 4 17:51:32 Referral None recorded . Procedures None recorded . Surgeries None recorded . Imaging None recorded . Medication Orders None recorded . Patient TargetsNo targets recorded. Patient InstructionsNo instructions recorded. Reason for Referral None Reported. Results Created Date Observation Date Name Description Value Unit Range Abnormal Flag Note LastModifiedBy Organization Detail LastModifiedTime 01/16/20 21 01/16/2021 HEMOG LOBIN A1C hemoglobin A1C 5.9 % 4.8-5. 6 above high normal Predi abete s: 5.7 - 6.4 Diabe tom: >6.4 Glyce anny contr ol for adult s with diabe tom: <7.0 Not Available [facility] ([facility]) [address] [facility], [place], [address], 01/17/2021 10:37:11 01/16/20 21 01/16/2021 LIPID PANEL WITH LDL/H DL RATIO cholesterol, total 258 mg/dL 100-19 9 above high normal Not Available [facility] ([facility]) [address] [place], [address], 01/17/2021 10:37:10 01/16/20 21 01/16/2021 LIPID PANEL WITH LDL/H DL RATIO triglyceride s 80 mg/dL 0-149 Not Available [facility] ([facility]) [address] [place], [address], 01/17/2021 10:37:10 01/16/20 21 01/16/2021 LIPID PANEL WITH LDL/H DL RATIO HDL cholesterol 69 mg/dL >39 Not Available [facility] ([facility]) [address] [place], [address], 01/17/2021 10:37:10 01/16/20 21 01/16/2021 LIPID PANEL WITH LDL/H DL RATIO VLDL cholesterol gordon 13 mg/dL 5-40 Not Available [facility] ([facility]) [address] [place], [address], 01/17/2021 10:37:10 01/16/20 21 01/16/2021 LIPID PANEL WITH LDL/H DL RATIO LDL chol calc ([facility]) 176 mg/dL 0-99 above high normal Not Available [facility] ([facility]) [address] [place], [address], 01/17/2021 10:37:10 01/16/20 21 01/16/2021 LIPID PANEL WITH LDL/H DL RATIO comment: internal controls consultant Not Available [facility] ([facility]) [address] [place], [address], 01/17/2021 10:37:10 01/16/20 21 01/16/2021 LIPID PANEL WITH LDL/H DL RATIO LDL/HDL ratio 2.6 ratio 0.0-3. 2 LDL/H DL Ratio Men Women 1/2 Avg.R isk 1.0 1.5 Avg.R isk 3.6 3.2 2X Avg.R isk 6.2 5.0 3X Avg.R isk 8.0 6.1 Not Available [facility] ([facility]) [address] [place], [address], 01/17/2021 10:37:10 01/16/20 21 01/16/2021 COMP. METAB OLIC PANEL (14) glucose 106 mg/dL 65-99 above high normal Not Available [facility] ([facility]) [address] [place], [address], 01/17/2021 10:37:09 01/16/20 21 01/16/2021 COMP. METAB OLIC PANEL (14) BUN 16 mg/dL 6-24 Not Available [facility] ([facility]) [address] [place], [address], 01/17/2021 10:37:09 01/16/20 21 01/16/2021 COMP. METAB OLIC PANEL (14) creatinine 0.82 mg/dL 0.57-1 .00 Not Available [facility] ([facility]) [address] [place], [address], 01/17/2021 10:37:09 01/16/20 21 01/16/2021 COMP. METAB OLIC PANEL (14) eGFR if nonafricn AM 79 mL/mi n/1.7 3 >59 Not Available [facility] ([facility]) [address] [place], [address], 01/17/2021 10:37:09 01/16/20 21 01/16/2021 COMP. METAB OLIC PANEL (14) eGFR if africn AM 91 mL/mi n/1.7 3 >59 In accor dance with recom menda tions from the NKF-A SN Task force , [facility] is in the proce ss of updat ing its eGFR calcu latio n to the 2020 CKD-E PI creat inine equat ion that estim ates kidne y funct ion witho ut a race varia ble. Not Available [facility] ([facility]) [address] [facility], [place], [address], 01/17/2021 10:37:09 01/16/20 21 01/16/2021 COMP. METAB OLIC PANEL (14) BUN/creatini ne ratio 20 9-23 Not Available [facility] ([facility]) [address] [place], [address], 01/17/2021 10:37:09 01/16/20 21 01/16/2021 COMP. METAB OLIC PANEL (14) sodium 141 mmol/ L 134-14 4 Not Available [facility] ([facility]) [address] [place], [address], 01/17/2021 10:37:09 01/16/20 21 01/16/2021 COMP. METAB OLIC PANEL (14) potassium 4.3 mmol/ L 3.5-5. 2 Not Available [facility] ([facility]) [address] [place], [address], 01/17/2021 10:37:09 01/16/20 21 01/16/2021 COMP. METAB OLIC PANEL (14) chloride 103 mmol/ L 96-106 Not Available [facility] ([facility]) [address] [place], [address], 01/17/2021 10:37:09 01/16/20 21 01/16/2021 COMP. METAB OLIC PANEL (14) carbon dioxide, total 21 mmol/ L 20-29 Not Available [facility] ([facility]) [address] [place], [address], 01/17/2021 10:37:09 01/16/20 21 01/16/2021 COMP. METAB OLIC PANEL (14) calcium 9.5 mg/dL 8.7-10 .2 Not Available [facility] ([facility]) [address] [facility], [place], [address], 01/17/2021 10:37:09 01/16/20 21 01/16/2021 COMP. METAB OLIC PANEL (14) protein, total 7.3 g/dL 6.0-8. 5 Not Available [facility] ([facility]) [address] [place], [address], 01/17/2021 10:37:09 01/16/20 21 01/16/2021 COMP. METAB OLIC PANEL (14) albumin 4.5 g/dL 3.8-4. 9 Not Available [facility] ([facility]) [address] [place], [address], 01/17/2021 10:37:09 01/16/20 21 01/16/2021 COMP. METAB OLIC PANEL (14) globulin, total 2.8 g/dL 1.5-4. 5 Not Available [facility] ([facility]) [address] [place], [address], 01/17/2021 10:37:09 01/16/20 21 01/16/2021 COMP. METAB OLIC PANEL (14) A/G ratio 1.6 1.2-2. 2 Not Available [facility] ([facility]) [address] [place], [address], 01/17/2021 10:37:09 01/16/20 21 01/16/2021 COMP. METAB OLIC PANEL (14) bilirubin, total 0.7 mg/dL 0.0-1. 2 Not Available [facility] ([facility]) [address] [facility], [place], [address], 01/17/2021 10:37:09 01/16/20 21 01/16/2021 COMP. METAB OLIC PANEL (14) alkaline phosphatase 99 IU/L 44-121 Ple ase note refer ence inter gavi holly e Not Available [facility] ([facility]) [address] [facility], [place], [address], 01/17/2021 10:37:09 01/16/20 21 01/16/2021 COMP. METAB OLIC PANEL (14) AST (SGOT) 18 IU/L 0-40 Not Available [facility] ([facility]) [address] [facility], [place], [address], 01/17/2021 10:37:09 01/16/20 21 01/16/2021 COMP. METAB OLIC PANEL (14) ALT (SGPT) 15 IU/L 0-32 Not Available [facility] ([facility]) [address] [facility], [place], [address], 01/17/2021 10:37:09 01/16/20 21 01/16/2021 CBC WITH DIFFE RENTI AL/PL ATELE T WBC 5.2 x10e3 /uL 3.4-10 .8 Not Available [facility] ([facility]) [address] [facility], [place], [address], 01/17/2021 10:37:09 01/16/20 21 01/16/2021 CBC WITH DIFFE RENTI AL/PL ATELE T RBC 5.33 x10e6 /uL 3.77-5 .28 above high normal Not Available [facility] ([facility]) [address] [facility], [place], [address], 01/17/2021 10:37:09 01/16/20 21 01/16/2021 CBC WITH DIFFE RENTI AL/PL ATELE T hemoglobin 15.5 g/dL 11.1-1 5.9 Not Available [facility] ([facility]) [address] [place], [address], 01/17/2021 10:37:09 01/16/20 21 01/16/2021 CBC WITH DIFFE RENTI AL/PL ATELE T hematocrit 46.7 % 34.0-4 6.6 above high normal Not Available [facility] ([facility]) [address] [place], [address], 01/17/2021 10:37:09 01/16/20 21 01/16/2021 CBC WITH DIFFE RENTI AL/PL ATELE T MCV 88 fL 79-97 Not Available [facility] ([facility]) [address] [place], [address], 01/17/2021 10:37:09 01/16/20 21 01/16/2021 CBC WITH DIFFE RENTI AL/PL ATELE T MCH 29.1 pg 26.6-3 3.0 Not Available [facility] ([facility]) [address] [place], [address], 01/17/2021 10:37:09 01/16/20 21 01/16/2021 CBC WITH DIFFE RENTI AL/PL ATELE T MCHC 33.2 g/dL 31.5-3 5.7 Not Available [facility] ([facility]) [address] [place], [address], 01/17/2021 10:37:09 01/16/20 21 01/16/2021 CBC WITH DIFFE RENTI AL/PL ATELE T RDW 13.2 % 11.7-1 5.4 Not Available [facility] ([facility]) [address] [place], [address], 01/17/2021 10:37:09 01/16/20 21 01/16/2021 CBC WITH DIFFE RENTI AL/PL ATELE T platelets 230 x10e3 /uL 150-45 0 Not Available [facility] ([facility]) [address] [facility], [place], [address], 01/17/2021 10:37:09 01/16/20 21 01/16/2021 CBC WITH DIFFE RENTI AL/PL ATELE T neutrophils 44 % not estab. Not Available [facility] ([facility]) [address] [facility], [place], [address], 01/17/2021 10:37:09 01/16/20 21 01/16/2021 CBC WITH DIFFE RENTI AL/PL ATELE T lymphs 40 % not estab. Not Available [facility] ([facility]) [address] [facility], [place], [address], 01/17/2021 10:37:09 01/16/20 21 01/16/2021 CBC WITH DIFFE RENTI AL/PL ATELE T monocytes 10 % not estab. Not Available [facility] ([facility]) [address] [facility], [place], [address], 01/17/2021 10:37:09 01/16/20 21 01/16/2021 CBC WITH DIFFE RENTI AL/PL ATELE T eos 5 % not estab. Not Available [facility] ([facility]) [address] [facility], [place], [address], 01/17/2021 10:37:09 01/16/20 21 01/16/2021 CBC WITH DIFFE RENTI AL/PL ATELE T basos 1 % not estab. Not Available [facility] ([facility]) [address] [facility], [place], [address], 01/17/2021 10:37:09 01/16/20 21 01/16/2021 CBC WITH DIFFE RENTI AL/PL ATELE T immature cells internal controls consultant Not Available [facility] ([facility]) [address] [facility], [place], [address], 01/17/2021 10:37:09 01/16/20 21 01/16/2021 CBC WITH DIFFE RENTI AL/PL ATELE T neutrophils (absolute) 2.3 x10e3 /uL 1.4-7. 0 Not Available [facility] ([facility]) [address] [place], [address], 01/17/2021 10:37:09 01/16/20 21 01/16/2021 CBC WITH DIFFE RENTI AL/PL ATELE T lymphs (absolute) 2.1 x10e3 /uL 0.7-3. 1 Not Available [facility] ([facility]) [address] [place], [address], 01/17/2021 10:37:09 01/16/20 21 01/16/2021 CBC WITH DIFFE RENTI AL/PL ATELE T monocytes(ab solute) 0.5 x10e3 /uL 0.1-0. 9 Not Available [facility] ([facility]) [address] [place], [address], 01/17/2021 10:37:09 01/16/20 21 01/16/2021 CBC WITH DIFFE RENTI AL/PL ATELE T eos (absolute) 0.3 x10e3 /uL 0.0-0. 4 Not Available [facility] ([facility]) [address] [place], [address], 01/17/2021 10:37:09 01/16/20 21 01/16/2021 CBC WITH DIFFE RENTI AL/PL ATELE T baso (absolute) 0.1 x10e3 /uL 0.0-0. 2 Not Available [facility] ([facility]) [address] [place], [address], 01/17/2021 10:37:09 01/16/20 21 01/16/2021 CBC WITH DIFFE RENTI AL/PL ATELE T immature granulocytes 0 % not estab. Not Available [facility] ([facility]) [address] [facility], [place], [address], 01/17/2021 10:37:09 01/16/20 21 01/16/2021 CBC WITH DIFFE RENTI AL/PL ATELE T immature grans (abs) 0.0 x10e3 /uL 0.0-0. 1 Not Available [facility] ([facility]) [address] [facility], [place], [address], 01/17/2021 10:37:09 01/16/20 21 01/16/2021 CBC WITH DIFFE RENTI AL/PL ATELE T NRBC internal controls consultant Not Available [facility] ([facility]) [address] [facility], [place], [address], 01/17/2021 10:37:09 01/16/20 21 01/16/2021 CBC WITH DIFFE RENTI AL/PL ATELE T hematology comments: internal controls consultant Not Available [facility] ([facility]) [address] [facility], [place], [address], 01/17/2021 10:37:09 01/16/20 21 01/16/2021 URINA LYSIS , ROUTI NE W/RFX specific gravity 1.017 1.005- 1.030 Not Available [facility] ([facility]) [address] [facility], [place], [address], 01/17/2021 10:37:08 01/16/20 21 01/16/2021 URINA LYSIS , ROUTI NE W/RFX pH 6.5 5.0-7. 5 Not Available [facility] ([facility]) [address] [facility], [place], [address], 01/17/2021 10:37:08 01/16/20 21 01/16/2021 URINA LYSIS , ROUTI NE W/RFX urine-color yellow yellow Not Available [facility] ([facility]) [address] [facility], [place], [address], 01/17/2021 10:37:08 01/16/20 21 01/16/2021 URINA LYSIS , ROUTI NE W/RFX appearance clear clear Not Available [facility] ([facility]) [address] [facility], [place], [address], 01/17/2021 10:37:08 01/16/20 21 01/16/2021 URINA LYSIS , ROUTI NE W/RFX WBC esterase 3+ negati ve abnormal Not Available [facility] ([facility]) [address] [place], [address], 01/17/2021 10:37:08 01/16/20 21 01/16/2021 URINA LYSIS , ROUTI NE W/RFX protein negati ve negati ve/tra ce Not Available [facility] ([facility]) [address] [place], [address], 01/17/2021 10:37:08 01/16/20 21 01/16/2021 URINA LYSIS , ROUTI NE W/RFX glucose negati ve negati ve Not Available [facility] ([facility]) [address] [place], [address], 01/17/2021 10:37:08 01/16/20 21 01/16/2021 URINA LYSIS , ROUTI NE W/RFX ketones negati ve negati ve Not Available [facility] ([facility]) [address] [place], [address], 01/17/2021 10:37:08 01/16/20 21 01/16/2021 URINA LYSIS , ROUTI NE W/RFX occult blood trace negati ve abnormal Not Available [facility] ([facility]) [address] [place], [address], 01/17/2021 10:37:08 01/16/20 21 01/16/2021 URINA LYSIS , ROUTI NE W/RFX bilirubin negati ve negati ve Not Available [facility] ([facility]) [address] [facility], [place], [address], 01/17/2021 10:37:08 01/16/20 21 01/16/2021 URINA LYSIS , ROUTI NE W/RFX urobilinogen ,semi-qn 0.2 mg/dL 0.2-1. 0 Not Available [facility] ([facility]) [address] [facility], [place], [address], 01/17/2021 10:37:08 01/16/20 21 01/16/2021 URINA LYSIS , ROUTI NE W/RFX nitrite, urine negati ve negati ve Not Available [facility] ([facility]) [address] [place], [address], 01/17/2021 10:37:08 01/16/20 21 01/16/2021 URINA LYSIS , ROUTI NE W/RFX microscopic examination see below: Micro scopi c was indic ated and was perfo rmed. Not Available [facility] ([facility]) [address] [facility], [place], [address], 01/17/2021 10:37:08 01/16/20 21 01/16/2021 URINA LYSIS , ROUTI NE W/RFX WBC 6-10 /hpf 0 - 5 abnormal Not Available [facility] ([facility]) [address] [facility], [place], [address], 01/17/2021 10:37:08 01/16/20 21 01/16/2021 URINA LYSIS , ROUTI NE W/RFX RBC 0-2 /hpf 0 - 2 Not Available [facility] ([facility]) [address] [place], [address], 01/17/2021 10:37:08 01/16/20 21 01/16/2021 URINA LYSIS , ROUTI NE W/RFX epithelial cells (non renal) 0-10 /hpf 0 - 10 Not Available [facility] ([facility]) [address] [facility], [place], [address], 01/17/2021 10:37:08 01/16/20 21 01/16/2021 URINA LYSIS , ROUTI NE W/RFX epithelial cells (renal) internal controls consultant Not Available [facility] ([facility]) [address] [facility], [place], [address], 01/17/2021 10:37:08 01/16/20 21 01/16/2021 URINA LYSIS , ROUTI NE W/RFX casts none seen /lpf none seen Not Available [facility] ([facility]) [address] [facility], [place], [address], 01/17/2021 10:37:08 01/16/20 21 01/16/2021 URINA LYSIS , ROUTI NE W/RFX cast type internal controls consultant Not Available [facility] ([facility]) [address] [facility], [place], [address], 01/17/2021 10:37:08 01/16/20 21 01/16/2021 URINA LYSIS , ROUTI NE W/RFX crystals internal controls consultant Not Available [facility] ([facility]) [address] [facility], [place], [address], 01/17/2021 10:37:08 01/16/20 21 01/16/2021 URINA LYSIS , ROUTI NE W/RFX crystal type internal controls consultant Not Available [facility] ([facility]) [address] [facility], [place], [address], 01/17/2021 10:37:08 01/16/20 21 01/16/2021 URINA LYSIS , ROUTI NE W/RFX mucus threads internal controls consultant Not Available [facility] ([facility]) [address] [facility], [place], [address], 01/17/2021 10:37:08 01/16/20 21 01/16/2021 URINA LYSIS , ROUTI NE W/RFX bacteria few none seen/f ew Not Available [facility] ([facility]) [address] [facility], [place], [address], 01/17/2021 10:37:08 01/16/20 21 01/16/2021 URINA LYSIS , ROUTI NE W/RFX yeast internal controls consultant Not Available [facility] ([facility]) [address] [facility], [place], [address], 01/17/2021 10:37:08 01/16/20 21 01/16/2021 URINA LYSIS , ROUTI NE W/RFX trichomonas internal controls consultant Not Available [facility] ([facility]) [address] [facility], [place], [address], 01/17/2021 10:37:08 01/16/20 21 01/16/2021 URINA LYSIS , ROUTI NE W/RFX comment internal controls consultant Not Available [facility] ([facility]) [address] [facility], [place], [address], 01/17/2021 10:37:08 01/16/20 21 01/17/2021 URINA LYSIS , ROUTI NE W/RFX creatinine, urine 63.0 mg/dL not estab. Not Available [facility] ([facility]) [address] [facility], [place], [address], 01/17/2021 10:37:08 01/16/20 21 01/17/2021 URINA LYSIS , ROUTI NE W/RFX protein,tota l,urine 6.0 mg/dL not estab. Not Available [facility] ([facility]) [address] [facility], [place], [address], 01/17/2021 10:37:08 01/16/20 21 01/17/2021 URINA LYSIS , ROUTI NE W/RFX protein/crea t ratio 95 mg/g_ creat 0-200 Not Available [facility] ([facility]) [address] [facility], [place], [address], 01/17/2021 10:37:08 01/17/2012/14/2020 MAMMO , scree natanael, digit al, bilat eral No observ ation record ed. [id number] [facility] [address], [place], [address], 04/16/2022 05:02:18 04/24/19 23 02/06/2021 colon oscop y scree natanael (PROC ) No observ ation record ed. BARCODE Not Available 2022 08:34:57 08/21/1905/05/2022 MAMMO , scree natanael, digit al, bilat eral No observ ation record ed. [id number] [facility] [address], [place], [address], 08/26/2022 16:35:42 Result Notes None recorded. Problems Name Problem SNOMED Code Status Onset Date Resolution Date Notes Provider Name and Address Organization Details Recorded Time Dysfunction of eustachian tube 12339804 Active 2022 Not Available [facility] 3 11:52:55 Well controlled type 2 diabetes mellitus 817244565 Active 2022 Not Available [facility] 3 11:52:55 Acute left otitis media 255300854 Active 2022 Not Available [facility] 3 11:52:55 Malignant melanoma 033455396 Active 2018 Not Available [facility] 3 11:52:55 Type 2 diabetes mellitus 78741895 Active 2016 Not Available [facility] 3 11:52:55 Hyperlipidemi a 81480641 Active 2021 Not Available [facility] 3 11:52:55 Problem Notes None recorded. Procedures Surgical History Date Name Laterality Status Provider Name and Address Organization Details Recorded Time MISCELLANEOUS MACHINE OPERATOR Surgery completed Not Available [facility] 04/16/2022 04:42:59 Ablation completed Not Available [facility] 04:42:59 Imaging Results None recorded. Procedure Notes None recorded. Medical Equipment None Reported. Allergies Allergen ID Allergen Name Allergen Category Reaction Reaction Severity Criticality Documentation Date Start Date Code Code System Note Provider Name and Address Organization Details Recorded Time 7579 Substance with sulfonami de structure and antibacte rial mechanism of action (substanc e) medicatio n Not available Not available Not available 04/16/2022 39587 8003 SNOMED Not Available [facility] 3 05:01:46 7580 Product containin g penicilli n (product) medicatio n Not available Not available Not available 04/16/2022 04168 8001 SNOMED Not Available [facility] 3 05:01:46 7581 latex environme nt,medica tion Not available Not available Not available 04/16/2022 45302 91 RxNorm Not Available [facility] 3 05:01:46 Medications Name Sig Start Date Stop Date Status Note LastModified by Organization Details LastModified Time tizanidine 2 mg tablet 07/04 completed Not Available Not Available Not Available clindamycin HCl 150 mg capsule active Not Available Not Available Not Available clobetasol 0.05 % topical gel 08/28 completed Not Available Not Available Not Available Cipro 500 mg tablet Take 1 tablet every 12 hours by oral route. 07/04 completed Not Available Not Available Not Available montelukast 10 mg tablet Take 1 tablet every day by oral route. active Not Available Not Available No t Available cefuroxime axetil 500 mg tablet Take 1 tablet every 12 hours by oral route. 07/01 completed Not Available Not Available Not Available methylpredn isolone 4 mg tablets in a dose pack 01/03 completed Not Available Not Available Not Available nitrofurant oin monohydrate /macrocryst als 100 mg capsule TAKE 1 CAPSULE BY MOUTH NEEDED POST COITALLY 07/01 completed Not Available Not Available Not Available Vitamin C 07/11 completed Not Available Not Available Not Available OneTouch Verio test strips Take 1 strip every day by miscell. route. active Not Available Not Available No t Available Fluzone Quad (PF) 60 mcg(15 mcgx4)/0.5 mL intramuscul ar syringe 07/09 completed Not Available Not Available Not Available Flucelvax Quad 4795-5839 (PF) 60 mcg (15 mcg x 4)/0.5 mL IM syringe Inject by intramusc . route for 1 day. 07/04 completed Not Available Not Available Not Available COVID-19 At-Home Test kit use as directed PRN 08/27 completed Not Available Not Available Not Available Vitals Date Recorded Body mass index (BMI) Body height Oxygen saturation Oxygen saturation in Arterial blood by Pulse oximetry Heart rate Respiratory rate Body weight Systolic blood pressure Diastolic blood pressure Provider Name and Address Organization Details Last Updated DateTime 3 25.3 kg/m2 175.26 cm 97 % 97 % 94 /min 16 /min 44741.3 g 120 mm[Hg] 78 mm[Hg] Not Available [facility] 3 04:43:36 Date Recorded Body height Body temperature Body mass index (BMI) Body weight Respiratory rate Oxygen saturation Oxygen saturation in Arterial blood by Pulse oximetry Heart rate Systolic blood pressure Diastolic blood pressure Provider Name and Address Organization Details Last Updated DateTime 3 175.26 cm 97.7 [degF] 25.5 kg/m2 69360.4 8 g 16 /min 98 % 98 % 81 /min 122 mm[Hg] 78 mm[Hg] SARA Caldwell [facility] [employer] 3 09:17:47 Date Recorded Body height Body mass index (BMI) Body weight Body temperature Heart rate Oxygen saturation Oxygen saturation in Arterial blood by Pulse oximetry Systolic blood pressure Diastolic blood pressure Provider Name and Address Organization Details Last Updated DateTime 3 175.26 cm 25.7 kg/m2 21059.0 7 g 97.9 [degF] 82 /min 98 % 98 % 122 mm[Hg] 68 mm[Hg] Rosey Soriano RN [facility] 3 09:27:02 Date Recorded Body mass index (BMI) Body height Oxygen saturation Oxygen saturation in Arterial blood by Pulse oximetry Heart rate Respiratory rate Body temperature Body weight Systolic blood pressure Diastolic blood pressure Provider Name and Address Organization Details Last Updated DateTime 2 26.6 kg/m2 175.26 cm 98 % 98 % 85 /min 16 /min 97.2 [degF] 18612.3 5 g 120 mm[Hg] 72 mm[Hg] Not Available [facility] 3 04:43:36 Date Recorded Body mass index (BMI) Body height Oxygen saturation Oxygen saturation in Arterial blood by Pulse oximetry Heart rate Body temperature Body weight Systolic blood pressure Diastolic blood pressure Provider Name and Address Organization Details Last Updated DateTime 1 26.3 kg/m2 175.26 cm 98 % 98 % 80 /min 97.8 [degF] 21109.8 8 g 110 mm[Hg] 70 mm[Hg] Not Available [facility] 3 04:43:36 Social History Question Answer Notes LastModified by Organizat ion Details LastModified Time Tobacco Smoking Status Never Smoker ELIZABETH Neal, B[facility] - [place] [facility] 08/13/2022 09:22:31 What Is Your Level Of Caffeine Consumption? Occasional [id number] Information not available 04/16/2022 How Much Tobacco Do You Chew? None [id number] Information not available 04/16/2022 In The 14 Days Before Symptom Onset, Have You Had Close Contact With A Laboratory-confirm ed COVID-19 While That Case Was Ill? No Information n ot available 08/13/2022 In The 14 Days Before Symptom Onset, Have You Had Close Contact With A Person Who Is Under Investigation For COVID-19 While That Person Was Ill? No Information not available 08/13/2022 What Type Of Diet Are You Following? REGULAR [id number] Information not available 04/16/2022 Which Illicit Or Recreational Drugs Have You Used? None Information not available 08/13/2022 Have There Been Any Changes To Your Family Or Social Situation? No Information no t available 08/13/2022 Do You Use Insect Repellent Routinely? No Information not available 08/13/2022 What Is Your Relationship Status? Information not available 07/01/2022 Do You Use Your Seat Belt Or Car Seat Routinely? Yes Information not available 08/13/2022 Do You Have Smoke And Carbon Monoxide Detectors In Your Home? Yes Information not available 08/13/2022 How Much Tobacco Do You Smoke? No [id number] Information not available 04/16/2022 Do You Use Sunscreen Routinely? Yes Information not available 08/13/2022 Have You Recently Traveled Abroad? No Information not available 08/13/2022 Do You Have Any Dietary Restrictions? No Information not available 08/13/2022 Sex: Unknown Functional Status Question Answer Note LastModified by Organizat ion Details LastModified Time Do you use any illicit or recreational drugs? No Information not available 08/13/2022 Do you or have you ever used any other forms of tobacco or nicotine? No Information not available 08/13/2022 What is your level of alcohol consumption? Occasional [id number] Information not available 04/16/2022 Do you or have you ever used smokeless tobacco? Never used smokeless tobacco [id number] Information not available 04/16/2022 Do you or have you ever used e-cigarettes or vape? Never used electronic cigarettes Information not available 08/13/2022 What is your exercise level? Moderate [id number] Information not available 04/16/2022 Mental Status None recorded. Family History Relationship Description Onset Age of this Age Resolved Age Notes LastModified by Organization Details LastModified Time Mother Lupus erythematosu s [id number] Not available 04/16/2022 04:43:01 Father Family history of ischemic heart disease [id number] Not available 04/16/2022 04:43:01 Paternal Grandfather Malignant tumor of colon [id number] Not available 04/16/2022 04:43:01 Maternal Grandmother Leukemia [id number] Not available 04/16/2022 04:43:01 Medical History Condition Response CANCER: SPECIFY Y HIGH CHOLESTEROL / HYPERLIPIDEMIA Y Gynecological History Statement/Question Response Date of Last Mammogram 12/14/2020 Date of Last Colonoscopy Date of LMP 02/16/2015 Most Recent Bone Density Sexually Active? Y Menses Monthly N Date of Last Pap 06/16/2018 Current Control Method Ablation Obstetrics History GPAL:G 2 P 0 0 0 2 Type Value Living 2 Total 2 Immunizations Vaccine Type Date Status Note Provider Nam e and Address Organization Details Recorded Time influenza, unspecified formulation 3 completed SARA Caldwell null, [facility] 12/16/2022 15:13:02 SARS-COV-2 (COVID-19) vaccine, UNSPECIFIED 3 completed SARA Caldwell null, [facility] 12/16/2022 15:13:13 SARS-COV-2 (COVID-19) vaccine, UNSPECIFIED 1 completed Not Available [facility] 04/16/2022 05:01:14 SARS-COV-2 (COVID-19) vaccine, UNSPECIFIED 1 completed Not Available [facility] 04/16/2022 05:01:14 influenza, unspecified formulation 0 completed Not Available [facility] 04/16/2022 05:01:14 Influenza, split virus, quadrivalent, preservative 0 completed Not Available [facility] 04/16/2022 05:01:14 Influenza, split virus, quadrivalent, preservative 2 completed Not Available [facility] 04/16/2022 05:01:14 zoster recombinant 2 completed Not Available [facility] 04/16/2022 05:01:14 zoster recombinant 1 completed Not Available [facility] 04/16/2022 05:01:14 COVID-19, mRNA, LNP-S, PF, 30 mcg/0.3 mL dose 1 completed Not Available [facility] 04/16/2022 05:01:15 Influenza, split virus, quadrivalent, preservative 9 completed Not Available [facility] 04/16/2022 05:01:15 influenza, unspecified formulation 8 completed Not Available [facility] 04/16/2022 05:01:15 Past Encounters Encounter ID Performer Location Encounter Start Date Encounter Closed Date Diagnosis/Indication Diagnosis SNOMED-CT Code Diagnosis ICD10 Code Diagnosis Note [id number] VALENTINO Tucker [facility] [address] [place] [address] 07/11/2020 00:00:00 07/11/2020 10:11:46 [id number] VALENTINO Tucker [facility] [place] [address] [place] [address] 01/16/2021 00:00:00 02/11/2021 22:17:25 [id number] Sudheer Hirsch MD [facility] [place] [address] [place] [address] 08/28/2021 00:00:00 09/15/2021 13:41:33 [id number] VALENTINO Tucker [facility] [place] [address] [place] [address] 02/18/2022 00:00:00 03/16/2022 14:37:01 [id number] VALENTINO Tucker [facility] [place] [address] [place] [address] 07/02/2022 09:08:21 07/02/2022 10:00:05 Dysfunction of eustachian tube 45474732 H69.92 there is small amount of wax close to TM but TM is visible and normal appearance . pt may flush with ear flush kit at home. start Nasonex to help with fluid behind TM. [id number] VALENTINO Tucker [facility] [place] [address] [place] [address] 08/13/2022 09:21:35 08/13/2022 09:57:40 Well controlled type 2 diabetes mellitus 847554440 E11.9 excellent hx of diet and exercise management .current labs drawn yesterday and pending. labs for february 2023 ordered today Hyperlipidemia 96165352 E78.5 diet and exercise management . Long-term drug therapy 706853944 Z79.899 Health Concerns Section Related Observation LastModified by Organization Detai ls LastModified Time None Recorded Concern Status LastModified by Organization Details LastModified Time None Recorded Advance Directives Directive None Recorded Payers Insurance Date Sequence Insurance Name Policy Number Policy Fatima Covered Member ID Fatima Member ID Guarantor Name 08/10/2022 1 [facility] [place] Sudheer Alba [id number] Alessandra Parth Notes Date Note Type Note Provider Name and Address Organization Details Recorded Time 021 text/ht ml DiabetesReported bypatient.Notes:diet controlled. has been very successful managing.Generic HPI TemplateReported bypatient.Notes:Pt is here today for her annual wellness exam, doing fine, no complaintsHyperlipidemiaReported bypatient.Notes:pt does not want medication. she diet controls and keeps HDL up Not Available [facility] 02/11/2021 22:17:25 022 text/ht ml DiabetesReported bypatient.Duration:chronic Control:usually well controlled; treated with diet only; hemoglobin A1C has been less than 7; LDL usually runs >140, goal is less than Compliance:compliant with medications; compliant with follow-up visits; compliant with diet; compliant with home glucose monitoring Self Care:monitoring glucose weekly Context:checking feet regularly;not seeing eye doctor yearly;not taking aspirin daily Associated Symptoms:no weight gain; no weight loss; no dizziness; no sweats; no headaches; no confusion; no increased thirst; no increased appetite; no increased urination; no blurred vision; no numbness of feet; no calluses on feet; no fatigue; no blurred vision; no paresthesias Not Available [facility] 09/15/2021 13:41:33 023 text/ht ml DiabetesReported bypatient.Duration:chronic Control:usually well controlled; treated with diet only Compliance:compliant with medications; compliant with follow-up visits; compliant with diet;noncompliant with home glucose monitoring Self Care:not monitoring home glucose Context:seeing eye doctor regularly; checking feet regularly;not taking aspirin daily Associated Symptoms:no weight gain; no weight loss; no dizziness; no sweats; no headaches; no confusion; no increased thirst; no increased appetite; no increased urination; no blurred vision; no numbness of feet; no calluses on feet; no fatigue; no blurred vision; no paresthesias Chronic Complications:hyperlipidemia: YesHyperlipidemiaReported bypatient.Duration:chronic Control:usually well controlled Compliance:compliant; compliant with diet; exercises Complications:no coronary artery disease; no peripheral artery disease; no cardiovascular disease Risk Factors:diabetes Not Available [facility] 03/16/2022 14:37:01 023 text/ht ml EaracheReported bypatient.Location:left;pain inside ear Quality:aching Severity:improving; current pain 2/10 Duration:started: (6 days ago) Timing:better; actual date: (Thursday) Context:no sick contacts; no recent swimming/water in ear; no exposure to second hand smoke; no head trauma; not grinding teeth; no recent air travel;history of ear aches/ear infections Modifying Factors:does not hurt to chew;hurts to lie on, or pull on ear Associated Symptoms:no discharge from the ears; no hearing loss; no nose/sinus problems; no popping noise in the ears; no ringing in the ears;nose/sinus problems;popping noise in the ears VALENTINO Tucker [address], [address] 07/14/2022 23:58:35 023 text/ht ml DiabetesReported bypatient.Control:usually well controlled; improved since last visit Compliance:compliant with medications; compliant with follow-up visits; compliant with diet; compliant with home glucose monitoring; had eye doctor visit in last year; had dietitian visit in last year; wears a medic alert bracelet or necklace; rapid-acting carbohydrate kept in car Self Care:monitoring glucose Context:normal range of home blood sugars (in the low 100s); seeing eye doctor regularly; checking feet regularly Associated Symptoms:no weight gain; no weight loss; no dizziness; no sweats; no headaches; no confusion; no increased thirst; no increased appetite; no increased urination; no blurred vision; no numbness of feet; no calluses on feet; no coronary artery disease; no kidney disease; no peripheral vascular disease; no diabetic retinopathy; no diabetic neuropathyHyperlipidemiaReported bypatient.Duration:chronic Control:usually well controlled; improving; at goal Compliance:compliant; compliant with diet; exercises Complications:no coronary artery disease; no peripheral artery disease; no cardiovascular disease 6 mo f/u, no current medicine VALENTINO Tucker [address], [facility] [address], [place], [address], [place] [facility] 08/13/2022 10:16:27 OBGyn Episode No OBEpisode recorded.
--- OUTSIDE RECORDS SUMMARY | 2024-07-29 07:33 | XMS_ITS | Referral Summary ---
Author Organization [facility] [address] [place] [address] Care Team Providers Care Nurses Superintendent Name Role Phone Kirsten Rojo Primary Care Pr ovider Encounters Date Type Department Care Team Description 05/27/2024 7:20 AM CDT - 05/27/2024 11:59 PM CDT Hospital Encounter [facility] [address] [place] [address] Hyperlipidemia, unspecified hyperlipidemia type Discharge Disposition: Discharge to home or self care from Last 3 Months Social History Tobacco Use Types Packs/Day Years Used Date Smoking Tobacco: Never Assessed Comments Unknown Sex and Gender Information Value Date Recorded Sex Assigned at Not on file Legal Sex Female 2:37 AM ASSORTER Gender Identity Not on file Sexual Orientation Not on file Plan of Treatment Not on file Procedures Procedure Name Priority Date/Time Associated Diagnosis Comments CT HEART CALCIUM Schedule Routine, Read Routine (OP Routine) 05/27/2024 7:35 AM CDT Hyperlipidemia, unspecified hyperlipidemia type from Last 3 Months Results * CT Coronary Calcium Scoring (05/27/2024 7:35 AM CDT) Anatomical Region Laterality Modality Chest Computed Tomogra phy 05/29/2024 3:37 PM CDT Narrative 05/29/2024 3:41 PM CDT EXAM DESCRIPTION: CT CORONARY CALCIUM SCORING REASON FOR STUDY: e78.5 Family hx of heart disease. High cholesterol. No complaints. . Calcium score screening. TECHNIQUE: CT scan of the heart performed without intravenous and without oral contrast using helical scanning technique. Images reviewed with lung, soft tissue and bone windows. Reconstructed coronal and sagittal MPR images reviewed. Coronary calcium scoring images were reviewed. All images stored on PACS. Automated exposure control was used as a dose optimization technique for this examination. COMPARISON: No prior. FINDINGS: Calcium score: 0 Right coronary artery and Posterior descendin Left main: 0 Left anterior descendin Circumflex: 0 Heart: Normal heart morphology. No pericardial effusion. Other: Limited view through the adjacent thoracic aorta demonstrates minimal atherosclerotic change. No aneurysmal dilatation. Limited view through the adjacent lungs demonstrates no infiltrate trivial atelectasis. IMPRESSION: Coronary artery calcium score is 0. REFERENCE: Coronary calcium scoring should be interpreted in the context of the overall patient including other cardiac risk factors. Consider further evaluation if multi-vessel or left-main predominant disease is present. Coronary calcium scoring is for screening asymptomatic patients, symptomatic patients require prompt evaluation. Calcium Score 0: Does not imply complete absence of coronary artery disease as non-calcified plaques may be present, but these patients may require less aggressive medical/lipid targets. Typically, does not warrant further imaging evaluation. Calcium score>0: Recommend further clinical evaluation and consider lipid/medical therapy. Scores >100 are at higher risk and therapy should be more strongly considered. Scores greater than 300 may require more aggressive medical targets/therapy and evaluation. Dilan Thomson, Jingesh R, Cindy Castaneda. Coronary Artery Calcium Score as a Graded Decision Tool. JACC Adv. 2022, 2 (9) . Amos Diamond. Hammad, Lise Kaufman et al. 2018 AHA/ACC/AACVPR/AAPA/ABC/ACPM/ADA/AGS/APhA/ASPC/NLA/PCNA guideline on the management of blood cholesterol: a report of the [place] [employer]/[place] Heart Association Task Force on Clinical Practice Guidelines. J Am Esthela Cardiol, 73 (24) (2019), pp. h716-s868 THIS IS AN ELECTRONICALLY VERIFIED FINAL REPORT 05/29/2024 3:41 PM - Electronically signed by Sudheer George M.D. MJ: MAGGI Report ID: [id number] Reading Location: [place] [address] Procedure Note Sudheer George MD - 05/29/2024 EXAM DESCRIPTION: CT CORONARY CALCIUM SCORING REASON FOR STUDY: e78.5 Family hx of heart disease. High cholesterol. No complaints. . Calcium score screening. TECHNIQUE: CT scan of the heart performed without intravenous andwithout oral contrast using helical scanning technique. Images reviewed withlung, soft tissue and bone windows. Reconstructed coronal and sagittal MPRimages reviewed. Coronary calcium scoring images were reviewed. All imagesstored on PACS. Automated exposure control was used as a dose optimizationtechnique for this examination. COMPARISON: No prior. FINDINGS: Calcium score: 0 Right coronary artery and Posterior descendin Left main: 0 Left anterior descendin Circumflex: 0 Heart: Normal heart morphology. No pericardial effusion. Other: Limited view through the adjacent thoracic aorta demonstratesminimal atherosclerotic change. No aneurysmal dilatation. Limited view throughthe adjacent lungs demonstrates no infiltrate trivial atelectasis. IMPRESSION: Coronary artery calcium score is 0. REFERENCE: Coronary calcium scoring should be interpreted in the contextof the overall patient including other cardiac risk factors. Consider further evaluation if multi-vessel or left-main predominant disease is present. Coronary calcium scoring is for screening asymptomatic patients,symptomatic patients require prompt evaluation. Calcium Score 0: Does not imply complete absence of coronary arterydisease as non-calcified plaques may be present, but these patients may require less aggressive medical/lipid targets. Typically, does not warrant furtherimaging evaluation. Calcium score>0: Recommend further clinical evaluation and consider lipid/medical therapy. Scores >100 are at higher risk and therapy shouldbe more strongly considered. Scores greater than 300 may require moreaggressive medical targets/therapy and evaluation. Berto, S, Jignesh, R, Cindy Castaneda. Coronary Artery Calcium Score as aGraded Decision Tool. JACC Adv. 2022, 2 (9) . Matt Diamond, Lise Kaufman, et al. 2018 AHA/ACC/AACVPR/AAPA/ABC/ACPM/ADA/AGS/APhA/ASPC/NLA/PCNA guideline on the management of blood cholesterol: a report of the [place] [employer]/[place] Heart Association Task Force on Clinical Practice Guidelines. J Am Esthela Cardiol, 73 24) (2019), pp. q088-w242 THIS IS AN ELECTRONICALLY VERIFIED FINAL REPORT 05/29/2024 3:41 PM - Electronically signed by Sudheer George M.D. MJ: MAGGI Report ID: [id number] Reading Location: [id number] Kirsten AVELAR IMG CT PROCEDURE S Final Result from Last 3 Months Insurance [email or web address] [place] [employer] Care Teams Nurses Superintendent Relationship Specialty Start Date End Date Kirsten Rojo PA [address] [place] [address] PCP - General Physician Store Receiving Clerk 10/29/23
--- OUTSIDE RECORDS SUMMARY | 2024-07-29 07:33 | XMS_ITS | Encounter Summary ---
Author Organization [facility] Address [address] [place] [address] Care Team Providers Care After School Caregiver Name Role Phone Sb Chowdhury MD Primary Care Provider [phone] Kirsten Tavares Primary Care Pr ovider Sb Chowdhury MD Primary Care Provider [phone] Kirsten Tavares Primary Care Pr ovider Encounter Details Date Type Department Care Team (Late st Contact Info) Description 09/29/2017 Lab Requisition [facility] Care DermPath Lab [address] [facility], [facility] [place] [phone] Araceli De La Torre MD [address] [place] [address] Social History Tobacco Use Types Packs/Day Years Used Date Smoking Tobacco: Never Smokeless Tobacco: Never Alcohol Use Standard Drinks/Week Comments Yes 0 (1 standard drink = 0.6 oz pur e alcohol) Comments Unknown Sex and Gender Information Value Date Recorded Sex Assigned at Not on file Legal Sex Female 5:30 PM NEWS DEPARTMENT INTERN Gender Identity Not on file Sexual Orientation Not on file documented as of this encounter Plan of Treatment Not on file documented as of this encounter Procedures Procedure Name Priority Date/Time Associated Diagnosis Comments DERMATOPATH TECHNICAL REPORT Routine 09/28/2017 12:00 AM CDT documented in this encounter Results * DERMATOPATH TECHNICAL REPORT (09/28/2017 12:00 AM CDT) Case Report Dermatopathology Report Case: [id number] Authorizing Provider: Araceli De La Torre MD Collected: 09/28/2017 12:00 AM Pathologist: Jimena Perales MD Received: 09/29/2017 07:40 AM Specimen: Skin, right abdomen 10:25 AM CDT DERMATOPATHOLOGY LABORATORY Clinical History Bx proven CMP. Check margins. Previous Bx [id number]. 10:25 AM CDT DERMATOPATHOLOGY LABORATORY Gross Description Specimen A: Received is one formalin filled container labeled with the patient's name and designated right abdomen.The specimen consists of an ellipse measuring [id number] and is oriented with the suture/notch at the 12 o'clock position labeled on the requisition as notch at 3 o'clock. The 12 to 6 o'clock margin is inked green. The 6 o'clock to 12 o'clock margin is inked black. The 12 o'clock tip is submitted in cassette 1. The 6 o'clock tip is submitted in cassette 2. The remainder of the ellipse is serially sectioned and submitted in cassettes 3-4. Jar 0. [facility] Dermatopathology Laboratory performed the technical component only. 10:25 AM CDT DERMATOPATHOLOGY LABORATORY Embedded Images 10:25 AM CDT DERMATOPATHOLOGY LABORATORY DISCLAIMER An external and internal positive and negative controls are appropriate for the histochemical, immunohistochemical and immunofluorescence stain(s) in this case (if any), except where stated explicitly. The performance characteristics of the stain(s) cited in this report were developed and its performance characteristic determined by the Dermatopathology Laboratory at [facility]. These tests need not be, and therefore are not, approved by the [place] Food and Drug Administration. The tests are used for clinical purposes. 10:25 AM CDT DERMATOPATHOLOGY LABORATORY at 1025 CDT Pathology/Cytolog y TISSUE SPECIMEN FROM SKIN / Unknown 09/28/2017 09/29/2017 7:40 AM CDT us Araceli De La Torre MD LAB - PATHOLOGY/CYTOLOGY ORD ERABLES Final Result DERMATOPATHOLOGY LABORATORY [facility] - Department of Dermatology [address] [facility], [address]th [place] [address], [facility] [phone] documented in this encounter Visit Diagnoses Not on filedocumented in this encounter Care Teams After School Caregiver Relationship Specialty Start Date End Date Sb Chowdhury MD [address] [place] [address] PCP - General Internal Medicine 03/27/17 06/27/18 Kirsten Tavares PA [address] [place] [phone] PCP - General Physician Locomotive Firer/Fireman 06/28/18 08/11/18 Sb Chowdhury MD [address] [place] [address] PCP - General 08/12/18 10/05/18 Kirsten Tavares PA [address] [place] [address] PCP - General 10/06/18 documented as of this encounter
--- OUTSIDE RECORDS SUMMARY | 2024-07-29 07:33 | XMS_ITS | Clinical Summary ---
Author Organization [facility] [address] [place] [address] Care Team Providers Care Trouble Dispatcher Name Role Phone Kirsten Rojo Primary Care Pr ovider Encounters Date Type Department Care Team Description 05/27/2024 7:20 AM CDT - 05/27/2024 11:59 PM CDT Hospital Encounter [facility] [address] [place] [address] Hyperlipidemia, unspecified hyperlipidemia type Discharge Disposition: Discharge to home or self care from Last 3 Months Social History Tobacco Use Types Packs/Day Years Used Date Smoking Tobacco: Never Assessed Comments Unknown Sex and Gender Information Value Date Recorded Sex Assigned at Not on file Legal Sex Female 2:37 AM ARCHEOLOGIST Gender Identity Not on file Sexual Orientation Not on file Plan of Treatment Health Maintenance Due Date Last Done Comments Cervical Cancer Screening 1962 Colon Cancer Screening-Colonoscopy 1962 Depression Screening 1962 Hepatitis C Screening 1962 Hepatitis B Screening 01/14/1980 Regular Well Visit/Exam 18-64 01/14/1980 Covid-19 Vaccine ( season) 2023 12/02/2022, 10/29/2021, 12/21/2020 Breast Cancer Screening-Mammogram 06/09/2024 06/10/2023 DTaP/Tdap/Td Vaccine (2 - Td or Tdap) 03/07/2034 03/07/2024 Zoster Vaccine Completed 02/16/2021, 01/16, 10/26/2020 Influenza Vaccine Completed 11/22/2023, , 11/04/2021, Additional history exists Pneumococcal vaccine <65 Aged Out No longer eligible based on patient's age to complete this topic Procedures Procedure Name Priority Date/Time Associated Diagnosis [...] aggressive medical targets/therapy and evaluation. Dilan Thomson, Jignesh R, Cindy Castaneda. Coronary Artery Calcium Score as a Graded Decision Tool. JACC Adv. 2022, 2 (9) . Matt Diamond, Lise Kaufman et al. 2018 AHA/ACC/AACVPR/AAPA/ABC/ACPM/ADA/AGS/APhA/ASPC/NLA/PCNA guideline on the management of blood cholesterol: a report of the [place] College of Cardiology/Brazilian Heart Association Task Force on Clinical Practice Guidelines. J Am Esthela Cardiol, 73 (24) (2019), pp. z398-w104 THIS IS AN ELECTRONICALLY VERIFIED FINAL REPORT 05/29/2024 3:41 PM - Electronically signed by Sudheer George M.D. MJ: MAGGI Report ID: [id number] Reading Location: [place] [address] Procedure Note Sudheer George MD - 05/29/2024 [...] may require moreaggressive medical targets/therapy and evaluation. Dilan Thomson, Mariela Egan, Cindy Castaneda. Coronary Artery Calcium Score as aGraded Decision Tool. JACC Adv. 2022 Nov, 2 (9) . Lennie Diamond.Steve. Hammad, Leonie. Shae, et al. 2018 AHA/ACC/AACVPR/AAPA/ABC/ACPM/ADA/AGS/APhA/ASPC/NLA/PCNA guideline on the management of blood cholesterol: a report of the [place] College of Cardiology/[place] Heart Association Task Force on Clinical Practice Guidelines. J Am Esthela Cardiol, 73 (24) (2019), pp. g970-d134 THIS IS AN ELECTRONICALLY VERIFIED FINAL REPORT 05/29/2024 3:41 PM - Electronically signed by Sudheer George M.D. MJ: MAGGI Report ID: [id number] Reading Location: [place] [address] PROCEDURE S Final Result from Last 3 Months Insurance [facility] CLAIMS Care Teams Trouble Dispatcher Relationship Specialty Start Date End Date Kirsten Rojo PA [address] [place] [address] PCP - General Physician Meter Attendant 10/29/23
--- OUTSIDE RECORDS SUMMARY | 2024-07-29 07:34 | XMS_ITS | Clinical Summary ---
Author Organization [facility] [employer] Address [address] [place] [address] Care Team Providers Care Stereo Compiler Name Role Phone Kirsten Tavares Primary Care Pr ovider Source Comments [facility] [employer],non-owned Affiliates and Associated Physician Practices is amultiple site organization consisting of ambulatory clinics and hospital sitesin [place], [place], [place] and [place]. This disclosure is being madepursuant to the Care Everywhere program and may not contain all information available regarding this patient. Last updated 17.[facility] [employer] Allergies Active Allergy Reactions Criticality Noted Date Comments Latex Rash Medium 08/09/2014 Penicillins Rash Medium 08/09/2014 Sulfa Drugs Rash Medium 08/09/2014 Medications * Be aware that medications may not be up to date on this document. Alwaysverify current medications with the patient. loratadine (CLARITIN) 10 MG tablet Take 10 mg by mouth Active influenza trivalent (FLUCELVAX) 0.5 ML injection 01/02/2017 Active Active Problems Problem Noted Date Diagnosed Date Malignant melanoma of left u pper extremity including shoulder 12/25/2014 Immunizations Immunization Administration Dates Next Due INFLUENZA VACCINE 11/09/2017 MMR 06/28/2018 Family History Medical History Relation Name Comments Heart Disease Father hip problem Status: Alive None Known Mother lupus Status: d Relation Name Status Comments Father hip problem Mother lupus Social History Tobacco Use Types Packs/Day Years Used Date Smoking Tobacco: Never Smokeless Tobacco: Never Alcohol Use Standard Drinks/Week Comments Yes 0 (1 standard drink = 0.6 oz pur e alcohol) Comments No Sex and Gender Information Value Date Recorded Sex Assigned at Not on file 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 Gender Identity Not on file Sexual Orientation Not on file Last Filed Vital Signs Vital Sign Reading Time Taken Comments Blood Pressure 122/78 09/28/2019 9:22 AM CDT Pulse 80 09/28/2019 9:22 AM CDT Temperature 36.3 C (97.4 F) 09/28/2019 9:22 AM CDT Respiratory Rate 16 08/22/2014 6:45 PM CDT Oxygen Saturation 99% 09/28/2019 9:22 AM CDT Inhaled Oxygen Concentration - - Weight 76.2 kg (168 lb) 09/28/2019 9:22 AM CDT Height 175.3 cm (5' 9) 09/28/2019 9:22 AM CDT Body Mass Index 24.81 09/28/2019 9:22 AM CDT Plan of Treatment Health Maintenance Due Date Last Done Comments COLOGUARD (AGES 45-75) - COLON CA SCREENING 1962 COLON MONITORING 1962 COLONOSCOPY - COLON CA SCREENING 1962 CT COLONOGRAPHY - COLON CA SCREENING 1962 Colorectal Cancer Screening 1962 FIT - COLON CA SCREENING 1962 FLEX SIG - COLON CA SCREENING 1962 LIPID TESTING 1962 MAMMOGRAM 1962 HIV SCREENING 1977 HEPATITIS C SCREENING 01/09/1980 DTAP/TDAP/TD VACCINES (1 - Tdap) 1981 PNEUMOCOCCAL VACCINE 50+ (1 of 1 - PCV) 01/14/2012 ZOSTER VACCINE (1 of 2) 01/14/2012 COVID-19 VACCINE (2 - season) 2023 12/21/2020 DEPRESSION SCREENING 02/17/2024 INFLUENZA VACCINE (Season Ended) 2024 11/04/2021, 11/03/2019, 11/02/2019, Additional history exists Respiratory Syncytial Virus (RSV) Vaccine Pt: or over 60 yrs (1 - 1-dose 75+ series) 2037 HEPATITIS B VACCINE Aged Out No longe r eligible based on patient's age to complete this topic HIB VACCINE Aged Out No longer eligi ble based on patient's age to complete this topic HPV VACCINE Aged Out No longer eligi ble based on patient's age to complete this topic MENINGOCOCCAL (Group B) VACCINE SHARED DECISION-MAKING Aged Out No longer eligible based on patient's age to complete this topic MENINGOCOCCAL GROUPS A/C/Y/W VACCINE Aged Out No longer eligible based on patient's age to complete this topic Insurance [facility] Care Teams Stereo Compiler Relationship Specialty Start Date End Date Kirsten Tavares PA [address] [place] [address] PCP - General 10/06/18
== END 2024-07-29 07:28 | disposition home or self-care (01) ==
LOC: ANHIMG 07:30
PROVIDERS: PCP Physician Assistant; Visit Provider Obstetrics & Gynecology
DX: Z12.31 Encounter for screening mammogram for malignant neoplasm of breast (principal); R92.8 Other abnormal and inconclusive findings on diagnostic imaging of breast
CPT/HCPCS: 77063; 77067

== ENCOUNTER 2024-08-26 10:55 | Outpatient (CLI) | payer OTHER, SELFPAY ==
--- NOTE | ~2024-08-26 | MMUS_ITS ---
EXAMINATION: MM diagnostic geovanna LT w jian, US breast LT limited HISTORY: Left breast asymmetry TECHNIQUE: Additional 3-D tomosynthesis images of the left breast were performed and synthetic 2-D im ages were generated. CAD analysis was submitted and interpreted. High resolution limited left breast ultrasound was performed. COMPARISON: 07/29/2024, 06/10/2023 BREAST PARENCHYMAL COMPOSITION:Not Dense. There are scattered areas of fibroglandular density. FINDINGS: MAMMOGRAPHIC FINDINGS: Suspected persistent 5 mm low-density mass at the 12:00 position left breast on spot compression imag es. No distortion or suspicious microcalcification. ULTRASOUND: No sonographic abnormality seen in the upper left breast. IMPRESSION: Suspected 5 mm low-density circumscribed mass at the upper left breast on mammographic images, witho ut sonographic correlate. This is probably benign given morphology. Six-month follow-up mammography/s onography advised. BI-RADS category 3, probably benign findings. Reviewed, dictated and finalized at location M. IMPRESSION: Suspected 5 mm low-density circumscribed mass at the upper left breast on mamm ographic images, without sonographic correlate. This is probably benign given m orphology. Six-month follow-up mammography/sonography advised. BI-RADS category 3, probably benign findings.
--- OUTSIDE RECORDS SUMMARY | 2024-08-26 11:02 | XMS_ITS | Clinical Summary ---
Author Organization [facility] [employer] Address [address] [facility] [place] [address] Care Team Providers Care Ror Engineer Name Role Phone Kirsten Tavares Primary Care Pr ovider Source Comments [facility] [employer],non-owned Affiliates and Associated Physician Practices is amultiple site organization consisting of ambulatory clinics and hospital sitesin [place], [place], [place] and [place]. This disclosure is being madepursuant to the Care Everywhere program and may not contain all information available regarding this patient. 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
--- OUTSIDE RECORDS SUMMARY | 2024-08-26 11:02 | XMS_ITS | Encounter Summary ---
Author Organization [facility] Address [address] [facility] [place] [address] Care Team Providers Care Manager Of Housekeeping Name Role Phone Sb Chowdhury MD Primary Care Provider [phone] Kirsten Tavares Primary Care Pr ovider Sb Chowdhury MD Primary Care Provider Kirsten Tavares Primary Care Pr ovider Encounter Details Date Type Department Care Team (Late st Contact Info) Description 09/29/2017 Lab Requisition 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 Gender Identity Not on file Sexual Orientation Not on file documented as of this encounter Plan of Treatment Not on file documented as of this encounter Procedures Procedure Name Priority Date/Time Associated Diagnosis Comments DERMATOPATH TECHNICAL REPORT Routine 09/28/2017 12:00 AM CDT documented in this encounter Results * DERMATOPATH TECHNICAL REPORT (09/28/2017 12:00 AM CDT) Case Report Dermatopathology Report Case: [id number] Authorizing Provider: Araceli De La Torre MD Collected: 09/28/2017 12:00 AM Pathologist: Jimena Perales MD Received: 09/29/2017 07:40 AM Specimen: Skin, right abdomen 10:25 AM CDT DERMATOPATHOLOGY LABORATORY Clinical History Bx proven CMP. Check margins. Previous Bx [id number]. 10:25 AM CDT DERMATOPATHOLOGY LABORATORY Gross Description Specimen A: Received is one formalin filled container labeled with the patient's name and designated right abdomen.The specimen consists of an ellipse measuring [id number] and is oriented with the suture/notch at [...] submitted in cassettes 3-4. Jar 0. [facility] Dermatopathology Laboratory performed the technical component only. [...] determined by the Dermatopathology Laboratory at [facility]. These tests need not be, and therefore are not, approved by the [place] Food and Drug Administration. The tests are used for clinical purposes. 10:25 AM CDT DERMATOPATHOLOGY LABORATORY at 1025 CDT Pathology/Cytolog y TISSUE SPECIMEN FROM SKIN / Unknown 09/28/2017 09/29/2017 7:40 AM CDT us Araceli De La Torre MD LAB - PATHOLOGY/CYTOLOGY ORD ERABLES Final Result DERMATOPATHOLOGY LABORATORY [facility] - Department of Dermatology [address] [facility], 5th [place] [address], [facility] [phone] documented in this encounter Visit Diagnoses Not on filedocumented in this encounter Care Teams Manager Of Housekeeping Relationship Specialty Start Date End Date Sb Chowdhury MD [address] [place] [address] PCP - General Internal Medicine 03/27/17 06/27/18 Kirsten Tavares PA [address] [place] [phone] PCP - General Physician House Steward/Stewardess 06/28/18 08/11/18 Sb Chowdhury MD [address] [place] [address] PCP - General 08/12/18 10/05/18 Kirsten Tavares PA [address] [place] [address] PCP - General 10/06/18 documented as of this encounter
--- OUTSIDE RECORDS SUMMARY | 2024-08-26 11:02 | XMS_ITS | Referral Summary ---
Author Organization [facility] [address] [place] [address] Care Team Providers Care Gusset Edger Name Role Phone Kirsten Rojo Primary Care Pr ovider Encounters Date Type Department Care Team Description 05/27/2024 7:20 AM CDT - 05/27/2024 11:59 PM CDT Hospital Encounter [facility] Medical Office Building [address] [place] [address] Hyperlipidemia, unspecified hyperlipidemia type Discharge Disposition: Discharge to home or self care from Last 3 Months Social History Tobacco Use Types Packs/Day Years Used Date Smoking Tobacco: Never Assessed Comments Unknown Sex and Gender Information Value Date Recorded Sex Assigned at Not on file Legal Sex Female 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 J Am Esthela Cardiol, 73 (24) (2019), pp. g698-s210 THIS IS AN ELECTRONICALLY VERIFIED FINAL REPORT 05/29/2024 3:41 PM - Electronically signed by Sudheer George M.D. MJ: MAGGI Report ID: [id number] Reading Location: [place] [address] Procedure Note Sudheer George MD - 05/29/2024 [...] of blood cholesterol: a report of the [place] College of Cardiology/[place] Heart Association Task Force on Clinical Practice Guidelines. J Am Esthela Cardiol, 73 24) (2019), pp. m877-k137 THIS IS AN ELECTRONICALLY VERIFIED FINAL REPORT 05/29/2024 3:41 PM - Electronically signed by Sudheer George M.D. MJ: MAGGI Report ID: [id number] Reading Location: [id number] Kirsten AVELAR IMG CT PROCEDURE S Final Result from Last 3 Months Insurance [email or web address] CLAIMS Care Teams Gusset Edger Relationship Specialty Start Date End Date Kirsten Rojo PA [address] [place] [address] PCP - General Physician Coil Winding Machines Set Up Mechanic 10/29/23
--- OUTSIDE RECORDS SUMMARY | 2024-08-26 11:02 | XMS_ITS | Data Portability ---
Author Organization [place] - [facility] [place] Address [address] [place] [address] Care Team Providers Care Claims Service Representative Name Role Phone ROSALINO IRIZARRY Primary Care Provider Unavailab le Assessment Encounter Date Assessment Date Assessment LastModified by Organization Details LastModified Time 04/23/2023 04/23/2023 Dr. darryl aguila Mar 2023, pap smear normal mammogram scheduled, due april, due 2025. eye exam UTD with [facility] in [place] 2022. no retinopathy Not available 04/23/2023 09:24:00 10/29/2023 10/29/2023 Dr. darryl aguila Mar 2023, pap smear normal mammogram UTD [facility] colonoscopy 2020, due 2025. eye exam UTD with [facility] in [place] 2022. no retinopathy Not available 10/29/2023 09:26:23 04/28/2024 04/28/2024 Dr. darryl aguila Mar 2023, pap smear normal mammogram UTD [facility] colonoscopy 2020, due 2025. eye exam UTD with [facility] in [place] 2022. no retinopathy Not available 05/16/2024 22:26:44 Plan of Treatment Reminders Order Date Submit Date Provider Last Modified By Organization Details Last Modified Time Details Appointments ANY 15 2024 08:00A M VALENTINO Tucker Not available Not available Not available Lab HbA1c (hemoglob in A1c), blood 2024 025 [facility], [address], [place], [address], 04/28/2024 09:33:56 microalbu min, urine 2024 025 [facility], [address], [place], [address], 04/28/2024 09:33:55 CMP, serum or plasma 2024 025 [facility], [address], [place], [address], 04/28/2024 09:33:56 CBC w/ auto diff 2024 025 [facility], [address], [place], [address], 04/28/2024 09:33:56 CMP, serum or plasma 2024 025 [facility], [address], [place], [address], 04/28/2024 09:33:56 lipid panel, serum 2024 025 [facility], [address], [place], [address], 04/28/2024 09:33:56 measles + mumps + rubella virus IgG panel, QN, serum or plasma 2024 025 [email or web address] [facility], [address], [place], [address], 05/18/2024 10:45:29 HbA1c (hemoglob in A1c), blood 01/31/2 024 [email or web address] [facility], [address], [place], [address], 04/27/2024 14:48:10 HbA1c (hemoglob in A1c), blood 2023 025 [facility], [address], [place], [address], 04/26/2024 13:08:29 CMP, serum or plasma 2023 024 [email or web address] [facility], [address], [place], [address], 04/27/2024 14:48:20 CBC w/ auto diff 2023 025 [facility], [address], [place], [address], 04/26/2024 13:08:30 CMP, serum or plasma 2023 025 RODOLFOPARKER [facility], [address], [place], [address], 04/26/2024 13:08:26 TSH + free T4, serum 2023 025 [facility]OLFOPARKER [facility], [address], [place], [address], 04/26/2024 13:08:25 vitamin B12 + folate, serum or blood 2023 025 [facility], [address], [place], [address], 04/26/2024 13:08:28 lipid panel, serum 2023 024 [email or web address] [facility], [address], [place], [address], 04/27/2024 14:48:15 lipid panel, serum 2023 025 [facility], [address], [place], [address], 04/26/2024 13:08:24 HbA1c (hemoglob in A1c), blood 2023 024 [place] [facility], [address], [place], [address], 10/27/2023 12:14:17 microalbu min, urine 2023 024 [facility], [address], [place], [address], 10/28/2023 10:05:59 CBC w/ auto diff 2023 024 [place] [facility], [address], [place], [address], 10/27/2023 12:14:18 CMP, serum or plasma 2023 024 [place] [facility], [address], [place], [address], 10/27/2023 12:14:15 vitamin B12 + folate, serum or blood 2023 024 [facility], [address], [place], [address], 10/27/2023 12:14:16 TSH + free T4, serum 2023 024 [facility], [address], [place], [address], 10/27/2023 12:14:14 lipid panel, serum 2023 024 [place] [facility], [address], [place], [address], 10/27/2023 12:14:14 Referral None recorded. Procedures None recorded. Surgeries None recorded. Imaging CT, coronary calcium score 2024 025 [facility], [address] [place] [address], [address], [place], [address], 05/29/2024 16:46:24 DEXA 2023 024 [facility] katheryn, [address] , [place], [address], 11/17/2023 21:29:50 XR, foot, 3 or more view 2023 024 [facility], [address], [place], [address], 10/06/2023 10:41:12 Medication Orders rosuvasta tin 5 mg tablet 2023 024 [email or web address] [id number], [address], [place], [place], [id number], 10/30/2023 16:54:29 Patient TargetsNo targets recorded. Patient Instructions Encounter Date Encounter Id Patient Instructions Last Modified By Organization Details Last Modified Time 04/28/2024 [id number] A healthy lifestyle: care instructions Not available 04/28/2024 09:33:56 Reason for Referral None Reported. Results Created Date Observation Date Name Description Value Unit Range Abnormal Flag Note LastModifiedBy Organization Detail LastModifiedTime 10/26/1910/27/2023 LIPID PANEL W/ CHOL/ HDL RATIO cholesterol, total 249 mg/dL 100-19 9 above high normal Not Available [facility] ([facility]) [address] [facility] [address], [place], [address], 10/27/2023 12:14:14 10/26/1910/27/2023 LIPID PANEL W/ CHOL/ HDL RATIO triglyceride s 106 mg/dL 0-149 Not Available [facility] ([facility]) [address] [facility] [address], [place], [address], 10/27/2023 12:14:14 10/26/1910/27/2023 LIPID PANEL W/ CHOL/ HDL RATIO HDL cholesterol 57 mg/dL >39 Not Available [facility] ([facility]) [address] [place], [address], 10/27/2023 12:14:14 10/26/19 24 10/27/2023 LIPID PANEL W/ CHOL/ HDL RATIO VLDL cholesterol gordon 19 mg/dL 5-40 Not Available [facility] ([facility]) [address] [place], [address], 10/27/2023 12:14:14 10/26/19 24 10/27/2023 LIPID PANEL W/ CHOL/ HDL RATIO LDL chol calc ([facility]) 173 mg/dL 0-99 above high normal Not Available [facility] ([facility]) [address] [place], [address], 10/27/2023 12:14:14 10/26/19 24 10/27/2023 LIPID PANEL W/ CHOL/ HDL RATIO T. chol/HDL ratio 4.4 ratio 0.0-4. 4 T. Chol/ HDL Ratio Men Women 1/2 Avg.R isk 3.4 3.3 Avg.R isk 5.0 4.4 2X Avg.R isk 9.6 7.1 3X Avg.R isk 23.4 11.0 Not Available [facility] ([facility]) [address] [place], [address], 10/27/2023 12:14:14 10/26/1910/27/2023 TSH+F REE T4 TSH 1.200 uIU/m L 0.450- 4.500 Not Available [facility] ([facility]) [address] [place], [address], 10/27/2023 12:14:14 10/26/1910/27/2023 TSH+F REE T4 T4,free(dire ct) 1.30 NG/dL 0.82-1 .77 Not Available [facility] ([facility]) [address] [place], [address], 10/27/2023 12:14:14 10/26/19 24 10/27/2023 COMP. METAB OLIC PANEL (14) glucose 103 mg/dL 70-99 above high normal Not Available [facility] ([facility]) [address] [place], [address], 10/27/2023 12:14:15 10/26/19 24 10/27/2023 COMP. METAB OLIC PANEL (14) BUN 13 mg/dL 8-27 Not Available [facility] ([facility]) [address] [place], [address], 10/27/2023 12:14:15 10/26/19 24 10/27/2023 COMP. METAB OLIC PANEL (14) creatinine 0.76 mg/dL 0.57-1 .00 Not Available [facility] ([facility]) [address] [place], [address], 10/27/2023 12:14:15 10/26/19 24 10/27/2023 COMP. METAB OLIC PANEL (14) eGFR 89 mL/mi n/1.7 3 >59 Not Available [facility] ([facility]) [address] [place], [address], 10/27/2023 12:14:15 10/26/19 24 10/27/2023 COMP. METAB OLIC PANEL (14) BUN/creatini ne ratio 17 12-28 Not Available [facility] ([facility]) [address] [place], [address], 10/27/2023 12:14:15 10/26/19 24 10/27/2023 COMP. METAB OLIC PANEL (14) sodium 141 mmol/ L 134-14 4 Not Available [facility] ([facility]) [address] [place], [address], 10/27/2023 12:14:15 10/26/19 24 10/27/2023 COMP. METAB OLIC PANEL (14) potassium 4.1 mmol/ L 3.5-5. 2 Not Available [facility] ([facility]) [address] [place], [address], 10/27/2023 12:14:15 10/26/19 24 10/27/2023 COMP. METAB OLIC PANEL (14) chloride 104 mmol/ L 96-106 Not Available [facility] ([facility]) [address] [place], [address], 10/27/2023 12:14:15 10/26/19 24 10/27/2023 COMP. METAB OLIC PANEL (14) carbon dioxide, total 24 mmol/ L 20-29 Not Available [facility] ([facility]) [address] [place], [address], 10/27/2023 12:14:15 10/26/19 24 10/27/2023 COMP. METAB OLIC PANEL (14) calcium 9.3 mg/dL 8.7-10 .3 Not Available [facility] ([facility] [address] [facility] [place], [address], 10/27/2023 12:14:15 10/26/19 24 10/27/2023 COMP. METAB OLIC PANEL (14) protein, total 7.1 g/dL 6.0-8. 5 Not Available [facility] ([facility]) [address] [place], [address], 10/27/2023 12:14:15 10/26/19 24 10/27/2023 COMP. METAB OLIC PANEL (14) albumin 4.2 g/dL 3.9-4. 9 Not Available [facility] ([facility]) [address] [place], [address], 10/27/2023 12:14:15 10/26/19 24 10/27/2023 COMP. METAB OLIC PANEL (14) globulin, total 2.9 g/dL 1.5-4. 5 Not Available [facility] ([facility]) [address] [place], [address], 10/27/2023 12:14:15 10/26/19 24 10/27/2023 COMP. METAB OLIC PANEL (14) bilirubin, total 0.5 mg/dL 0.0-1. 2 Not Available [facility] ([facility]) [address] [place], [address], 10/27/2023 12:14:15 10/26/19 24 10/27/2023 COMP. METAB OLIC PANEL (14) alkaline phosphatase 103 IU/L 44-121 Not Available [facility] ([facility]) [address] [facility] [place], [address], 10/27/2023 12:14:15 10/26/19 24 10/27/2023 COMP. METAB OLIC PANEL (14) AST (SGOT) 13 IU/L 0-40 Not Available [facility] ([facility]) [address] [facility] [place], [address], 10/27/2023 12:14:15 10/26/19 24 10/27/2023 COMP. METAB OLIC PANEL (14) ALT (SGPT) 12 IU/L 0-32 Not Available [facility] ([facility]) [address] [facility] [place], [address], 10/27/2023 12:14:15 10/26/19 24 10/26/2023 UNABL E TO VOID unable to void Commen t Patie nt unabl e to void. Urine to be colle cted at a later date. Not Available [facility] ([facility]) [address] [facility] [place], [address], 10/27/2023 12:14:16 10/26/19 24 10/27/2023 VITAM IN B12 AND FOLAT E vitamin B12 411 pg/mL 232-12 45 Not Available [facility] ([facility]) [address] [facility] [place], [address], 10/27/2023 12:14:16 10/26/19 24 10/27/2023 VITAM IN B12 AND FOLAT E folate (folic acid), serum 12.2 NG/mL >3.0 A serum folat e tien ntrat ion of less than 3.1 ng/mL is consi dered to repre sent clini gordon defic iency . Not Available [facility] ([facility]) [address] [facility], [place], [address], 10/27/2023 12:14:16 10/26/19 24 10/27/2023 HEMOG LOBIN A1C hemoglobin A1C 6.3 % 4.8-5. 6 above high normal Predi abete s: 5.7 - 6.4 Diabe tom: >6.4 Glyce anny contr ol for adult s with diabe tom: <7.0 Not Available [facility] ([facility]) [address] [facility], [place], [address], 10/27/2023 12:14:17 10/26/19 24 10/27/2023 CBC WITH DIFFE RENTI AL/PL ATELE T WBC 6.0 x10e3 /uL 3.4-10 .8 Not Available [facility] ([facility]) [address] [facility], [place], [address], 10/27/2023 12:14:18 10/26/19 24 10/27/2023 CBC WITH DIFFE RENTI AL/PL ATELE T RBC 5.16 x10e6 /uL 3.77-5 .28 Not Available [facility] ([facility]) [address] [facility], [place], [address], 10/27/2023 12:14:18 10/26/19 24 10/27/2023 CBC WITH DIFFE RENTI AL/PL ATELE T hemoglobin 14.8 g/dL 11.1-1 5.9 Not Available [facility] ([facility]) [address] [facility], [place], [address], 10/27/2023 12:14:18 10/26/19 24 10/27/2023 CBC WITH DIFFE RENTI AL/PL ATELE T hematocrit 46.1 % 34.0-4 6.6 Not Available [facility] ([facility]) [address] [facility], [place], [address], 10/27/2023 12:14:18 10/26/19 24 10/27/2023 CBC WITH DIFFE RENTI AL/PL ATELE T MCV 89 fL 79-97 Not Available [facility] ([facility]) [address] [facility], [place], [address], 10/27/2023 12:14:18 10/26/1910/27/2023 CBC WITH DIFFE RENTI AL/PL ATELE T MCH 28.7 pg 26.6-3 3.0 Not Available [facility] ([facility]) [address] [facility], [place], [address], 10/27/2023 12:14:18 10/26/19 24 10/27/2023 CBC WITH DIFFE RENTI AL/PL ATELE T MCHC 32.1 g/dL 31.5-3 5.7 Not Available [facility] ([facility]) [address] [facility], [place], [address], 10/27/2023 12:14:18 10/26/1910/27/2023 CBC WITH DIFFE RENTI AL/PL ATELE T RDW 13.0 % 11.7-1 5.4 Not Available [facility] ([facility]) [address] [facility], [place], [address], 10/27/2023 12:14:18 10/26/1910/27/2023 CBC WITH DIFFE RENTI AL/PL ATELE T platelets 254 x10e3 /uL 150-45 0 Not Available [facility] ([facility]) [address] [place], [address], 10/27/2023 12:14:18 10/26/19 24 10/27/2023 CBC WITH DIFFE RENTI AL/PL ATELE T neutrophils 37 % notest ab. Not Available [facility] ([facility]) [address] [facility], [place], [address], 10/27/2023 12:14:18 10/26/19 24 10/27/2023 CBC WITH DIFFE RENTI AL/PL ATELE T lymphs 49 % notest ab. Not Available [facility] ([facility]) [address] [facility], [place], [address], 10/27/2023 12:14:18 10/26/19 24 10/27/2023 CBC WITH DIFFE RENTI AL/PL ATELE T monocytes 9 % notest ab. Not Available [facility] ([facility]) [address] [facility], [place], [address], 10/27/2023 12:14:18 10/26/19 24 10/27/2023 CBC WITH DIFFE RENTI AL/PL ATELE T eos 4 % notest ab. Not Available [facility] ([facility]) [address] [facility], [place], [address], 10/27/2023 12:14:18 10/26/19 24 10/27/2023 CBC WITH DIFFE RENTI AL/PL ATELE T basos 1 % notest ab. Not Available [facility] ([facility]) [address] [facility], [place], [address], 10/27/2023 12:14:18 10/26/19 24 10/27/2023 CBC WITH DIFFE RENTI AL/PL ATELE T neutrophils (absolute) 2.2 x10e3 /uL 1.4-7. 0 Not Available [facility] ([facility]) [address] [facility], [place], [address], 10/27/2023 12:14:18 10/26/19 24 10/27/2023 CBC WITH DIFFE RENTI AL/PL ATELE T lymphs (absolute) 2.9 x10e3 /uL 0.7-3. 1 Not Available [facility] ([facility]) [address] [facility], [place], [address], 10/27/2023 12:14:18 10/26/19 24 10/27/2023 CBC WITH DIFFE RENTI AL/PL ATELE T monocytes(ab solute) 0.5 x10e3 /uL 0.1-0. 9 Not Available [facility] ([facility]) [address] [facility], [place], [address], 10/27/2023 12:14:18 10/26/1910/27/2023 CBC WITH DIFFE RENTI AL/PL ATELE T eos (absolute) 0.2 x10e3 /uL 0.0-0. 4 Not Available [facility] ([facility]) [address] [facility], [place], [address], 10/27/2023 12:14:18 10/26/19 24 10/27/2023 CBC WITH DIFFE RENTI AL/PL ATELE T baso (absolute) 0.1 x10e3 /uL 0.0-0. 2 Not Available [facility] ([facility]) [address] [facility], [place], [address], 10/27/2023 12:14:18 10/26/19 24 10/27/2023 CBC WITH DIFFE RENTI AL/PL ATELE T immature granulocytes 0 % notest ab. Not Available [facility] ([facility]) [address] [facility], [place], [address], 10/27/2023 12:14:18 10/26/1910/27/2023 CBC WITH DIFFE RENTI AL/PL ATELE T immature grans (abs) 0.0 x10e3 /uL 0.0-0. 1 Not Available [facility] ([facility]) [address] [place], [address], 10/27/2023 12:14:18 10/27/19 24 10/28/2023 ALBUM IN, RANDO M URINE albumin, urine 3.8 ug/mL notest ab. Not Available [facility] ([facility]) [address] [facility], [place], [address], 10/28/2023 08:33:24 04/26/19 25 04/26/2024 LIPID PANEL W/ CHOL/ HDL RATIO cholesterol, total 235 mg/dL 100-19 9 above high normal Not Available [facility] ([facility]) [address] [facility], [place], [address], 04/26/2024 13:08:24 04/26/19 25 04/26/2024 LIPID PANEL W/ CHOL/ HDL RATIO triglyceride s 98 mg/dL 0-149 Not Available [facility] ([facility]) [address] [facility], [place], [address], 04/26/2024 13:08:24 04/26/19 25 04/26/2024 LIPID PANEL W/ CHOL/ HDL RATIO HDL cholesterol 58 mg/dL >39 Not Available [facility] ([facility]) [address] [place], [address], 04/26/2024 13:08:24 04/26/19 25 04/26/2024 LIPID PANEL W/ CHOL/ HDL RATIO VLDL cholesterol gordon 17 mg/dL 5-40 Not Available [facility] ([facility]) [address] [place], [address], 04/26/2024 13:08:24 04/26/19 25 04/26/2024 LIPID PANEL W/ CHOL/ HDL RATIO LDL chol calc ([facility]) 160 mg/dL 0-99 above high normal Not Available [facility] ([facility]) [address] [place], [address], 04/26/2024 13:08:24 04/26/19 25 04/26/2024 LIPID PANEL W/ CHOL/ HDL RATIO T. chol/HDL ratio 4.1 ratio 0.0-4. 4 T. Chol/ HDL Ratio Men Women 1/2 Avg.R isk 3.4 3.3 Avg.R isk 5.0 4.4 2X Avg.R isk 9.6 7.1 3X Avg.R isk 23.4 11.0 Not Available [facility] ([facility]) [address] [place], [address], 04/26/2024 13:08:24 04/26/19 25 04/26/2024 TSH+F REE T4 TSH 1.180 uIU/m L 0.450- 4.500 Not Available [facility] ([facility]) [address] [place], [address], 04/26/2024 13:08:25 04/26/19 25 04/26/2024 TSH+F REE T4 T4,free(dire ct) 1.35 NG/dL 0.82-1 .77 Not Available [facility] ([facility]) [address] [place], [address], 04/26/2024 13:08:25 04/26/19 25 04/26/2024 COMP. METAB OLIC PANEL (14) glucose 111 mg/dL 70-99 above high normal Not Available [facility] ([facility]) [address] [place], [address], 04/26/2024 13:08:26 04/26/19 25 04/26/2024 COMP. METAB OLIC PANEL (14) BUN 14 mg/dL 8-27 Not Available [facility] ([facility]) [address] [place], [address], 04/26/2024 13:08:26 04/26/19 25 04/26/2024 COMP. METAB OLIC PANEL (14) creatinine 0.76 mg/dL 0.57-1 .00 Not Available [facility] ([facility]) [address] [place], [address], 04/26/2024 13:08:26 04/26/19 25 04/26/2024 COMP. METAB OLIC PANEL (14) eGFR 89 mL/mi n/1.7 3 >59 Not Available [facility] ([facility]) [address] [facility], [place], [address], 04/26/2024 13:08:26 04/26/19 25 04/26/2024 COMP. METAB OLIC PANEL (14) BUN/creatini ne ratio 18 12-28 Not Available [facility] ([facility]) [address] [facility], [place], [address], 04/26/2024 13:08:26 04/26/19 25 04/26/2024 COMP. METAB OLIC PANEL (14) sodium 142 mmol/ L 134-14 4 Not Available [facility] ([facility]) [address] [facility], [place], [address], 04/26/2024 13:08:26 04/26/19 25 04/26/2024 COMP. METAB OLIC PANEL (14) potassium 4.4 mmol/ L 3.5-5. 2 Not Available [facility] ([facility]) [address] [facility], [place], [address], 04/26/2024 13:08:26 04/26/19 25 04/26/2024 COMP. METAB OLIC PANEL (14) chloride 105 mmol/ L 96-106 Not Available [facility] ([facility]) [address] [facility], [place], [address], 04/26/2024 13:08:26 04/26/19 25 04/26/2024 COMP. METAB OLIC PANEL (14) carbon dioxide, total 22 mmol/ L 20-29 Not Available [facility] ([facility]) [address] [facility], [place], [address], 04/26/2024 13:08:26 04/26/19 25 04/26/2024 COMP. METAB OLIC PANEL (14) calcium 9.6 mg/dL 8.7-10 .3 Not Available [facility] ([facility]) [address] [place], [address], 04/26/2024 13:08:26 04/26/19 25 04/26/2024 COMP. METAB OLIC PANEL (14) protein, total 7.0 g/dL 6.0-8. 5 Not Available [facility] ([facility]) [address] [place], [address], 04/26/2024 13:08:26 04/26/19 25 04/26/2024 COMP. METAB OLIC PANEL (14) albumin 4.1 g/dL 3.9-4. 9 Not Available [facility] ([facility]) [address] [place], [address], 04/26/2024 13:08:26 04/26/19 25 04/26/2024 COMP. METAB OLIC PANEL (14) globulin, total 2.9 g/dL 1.5-4. 5 Not Available [facility] ([facility]) [address] [place], [address], 04/26/2024 13:08:26 04/26/19 25 04/26/2024 COMP. METAB OLIC PANEL (14) bilirubin, total 0.5 mg/dL 0.0-1. 2 Not Available [facility] ([facility]) [address] [place], [address], 04/26/2024 13:08:26 04/26/19 25 04/26/2024 COMP. METAB OLIC PANEL (14) alkaline phosphatase 107 IU/L 44-121 Not Available [facility] ([facility]) [address] [place], [address], 04/26/2024 13:08:26 04/26/19 25 04/26/2024 COMP. METAB OLIC PANEL (14) AST (SGOT) 16 IU/L 0-40 Not Available [facility] ([facility]) [address] [place], [address], 04/26/2024 13:08:26 04/26/19 25 04/26/2024 COMP. METAB OLIC PANEL (14) ALT (SGPT) 12 IU/L 0-32 Not Available [facility] ([facility]) [address] [facility], [place], [address], 04/26/2024 13:08:26 04/26/19 25 04/26/2024 VITAM IN B12 AND FOLAT E vitamin B12 476 pg/mL 232-12 45 Not Available [facility] ([facility]) [address] [facility], [place], [address], 04/26/2024 13:08:27 04/26/19 25 04/26/2024 VITAM IN B12 AND FOLAT E folate (folic acid), serum 11.2 NG/mL >3.0 A serum folat e tien ntrat ion of less than 3.1 ng/mL is consi dered to repre sent clini gordon defic iency . Not Available [facility] ([facility]) [address] [facility], [place], [address], 04/26/2024 13:08:27 04/26/19 25 04/26/2024 HEMOG LOBIN A1C hemoglobin A1C 6.5 % 4.8-5. 6 above high normal Predi abete s: 5.7 - 6.4 Diabe tom: >6.4 Glyce anny contr ol for adult s with diabe tom: <7.0 Not Available [facility] ([facility]) [address] [place], [address], 04/26/2024 13:08:29 04/26/19 25 04/26/2024 CBC WITH DIFFE RENTI AL/PL ATELE T WBC 5.9 x10e3 /uL 3.4-10 .8 Not Available [facility] ([facility]) [address] [facility], [place], [address], 04/26/2024 13:08:30 04/26/19 25 04/26/2024 CBC WITH DIFFE RENTI AL/PL ATELE T RBC 5.31 x10e6 /uL 3.77-5 .28 above high normal Not Available [facility] ([facility]) [address] [facility], [place], [address], 04/26/2024 13:08:30 04/26/19 25 04/26/2024 CBC WITH DIFFE RENTI AL/PL ATELE T hemoglobin 15.0 g/dL 11.1-1 5.9 Not Available [facility] ([facility]) [address] [facility], [place], [address], 04/26/2024 13:08:30 04/26/19 25 04/26/2024 CBC WITH DIFFE RENTI AL/PL ATELE T hematocrit 46.2 % 34.0-4 6.6 Not Available [facility] ([facility]) [address] [facility], [place], [address], 04/26/2024 13:08:30 04/26/19 25 04/26/2024 CBC WITH DIFFE RENTI AL/PL ATELE T MCV 87 fL 79-97 Not Available [facility] ([facility]) [address] [place], [address], 04/26/2024 13:08:30 04/26/19 25 04/26/2024 CBC WITH DIFFE RENTI AL/PL ATELE T MCH 28.2 pg 26.6-3 3.0 Not Available [facility] ([facility]) [address] [place], [address], 04/26/2024 13:08:30 04/26/19 25 04/26/2024 CBC WITH DIFFE RENTI AL/PL ATELE T MCHC 32.5 g/dL 31.5-3 5.7 Not Available [facility] ([facility]) [address] [facility], [place], [address], 04/26/2024 13:08:30 04/26/19 25 04/26/2024 CBC WITH DIFFE RENTI AL/PL ATELE T RDW 13.1 % 11.7-1 5.4 Not Available [facility] ([facility]) [address] [facility], [place], [address], 04/26/2024 13:08:30 04/26/19 25 04/26/2024 CBC WITH DIFFE RENTI AL/PL ATELE T platelets 260 x10e3 /uL 150-45 0 Not Available [facility] ([facility]) [address] [facility], [place], [address], 04/26/2024 13:08:30 04/26/19 25 04/26/2024 CBC WITH DIFFE RENTI AL/PL ATELE T neutrophils 36 % notest ab. Not Available [facility] ([facility]) [address] [facility], [place], [address], 04/26/2024 13:08:30 04/26/19 25 04/26/2024 CBC WITH DIFFE RENTI AL/PL ATELE T lymphs 51 % notest ab. Not Available [facility] ([facility]) [address] [facility], [place], [address], 04/26/2024 13:08:30 04/26/19 25 04/26/2024 CBC WITH DIFFE RENTI AL/PL ATELE T monocytes 8 % notest ab. Not Available [facility] ([facility]) [address] [facility], [place], [address], 04/26/2024 13:08:30 04/26/19 25 04/26/2024 CBC WITH DIFFE RENTI AL/PL ATELE T eos 4 % notest ab. Not Available [facility] ([facility]) [address] [facility], [place], [address], 04/26/2024 13:08:30 04/26/19 25 04/26/2024 CBC WITH DIFFE RENTI AL/PL ATELE T basos 1 % notest ab. Not Available [facility] ([facility]) [address] [facility], [place], [address], 04/26/2024 13:08:30 04/26/19 25 04/26/2024 CBC WITH DIFFE RENTI AL/PL ATELE T neutrophils (absolute) 2.1 x10e3 /uL 1.4-7. 0 Not Available [facility] ([facility]) [address] [facility], [place], [address], 04/26/2024 13:08:30 04/26/19 25 04/26/2024 CBC WITH DIFFE RENTI AL/PL ATELE T lymphs (absolute) 2.9 x10e3 /uL 0.7-3. 1 Not Available [facility] ([facility]) [address] [facility], [place], [address], 04/26/2024 13:08:30 04/26/19 25 04/26/2024 CBC WITH DIFFE RENTI AL/PL ATELE T monocytes(ab solute) 0.5 x10e3 /uL 0.1-0. 9 Not Available [facility] ([facility]) [address] [facility], [place], [address], 04/26/2024 13:08:30 04/26/19 25 04/26/2024 CBC WITH DIFFE RENTI AL/PL ATELE T eos (absolute) 0.3 x10e3 /uL 0.0-0. 4 Not Available [facility] ([facility]) [address] [facility], [place], [address], 04/26/2024 13:08:30 04/26/19 25 04/26/2024 CBC WITH DIFFE RENTI AL/PL ATELE T baso (absolute) 0.1 x10e3 /uL 0.0-0. 2 Not Available [facility] ([facility]) [address] [facility], [place], [address], 04/26/2024 13:08:30 04/26/19 25 04/26/2024 CBC WITH DIFFE RENTI AL/PL ATELE T immature granulocytes 0 % notest ab. Not Available [facility] ([facility]) [address] [facility], [place], [address], 04/26/2024 13:08:30 04/26/19 25 04/26/2024 CBC WITH DIFFE RENTI AL/PL ATELE T immature grans (abs) 0.0 x10e3 /uL 0.0-0. 1 Not Available [facility] ([facility]) [address] [facility], [place], [address], 04/26/2024 13:08:30 06/10/19 24 06/10/2023 MAMMO , scree natanael, bilat eral No observ ation record ed. [facility] [address], [place], [address], 06/10/2023 16:22:27 10/06/19 24 10/06/2023 XR, foot, 3 or more view No observ ation record ed. [facility] [address], [place], [address], 10/06/2023 15:05:26 11/17/19 24 11/17/2023 DEXA No observ ation record ed. [facility] [address], [address], 04/28/2024 09:09:08 05/30/19 25 05/27/2024 CT, coron hiwot calci um score No observ ation record ed. [facility] [address] [place], [address], 05/30/2024 16:07:55 06/07/29/2024 MAMMO , scree natanael, digit al, bilat eral No observ ation record ed. [facility] [address], [place], [address], 08/05/2024 17:00:09 Result Notes None recorded. Problems Name Problem SNOMED Code Status Onset Date Resolution Date Notes Provider Name and Address Organization Details Recorded Time Type 2 diabetes mellitus 46374033 Active 2023 Yenny Crandall null, [place] 4 09:56:25 Body mass index 25-29 - overweight 929896313 Active 2023 Karen García MA null, [place] 4 09:39:06 Overweight 539479049 Active 2023 VALENTINO Tucker Attn: Luis g,[address] [facility], [place], [address], [facility] 4 15:24:24 Closed fracture of second metatarsal bone 32919629 Active 2023 VALENTINO Tucker Attn: Accountin g,[address] [place], [address], [facility] - [facility] 4 15:24:45 Hyperlipidemia 90648606 Active 2023 VALENTINO Tucker Attn: Accountin g,[address] [place], [address], [facility] - [facility] 4 15:24:57 Well controlled type 2 diabetes mellitus 169910521 Active 2023 VALENTINO Tucker Attn: Accountin g,[address] [place], [address], [facility] - [facility] 4 15:25:21 Long-term drug therapy Active 2024 VALENTINO Tucker Attn: Jaminin g,[address] [facility], [place], [address], [facility] - [facility] 5 22:27:31 Problem Notes None recorded. Procedures Surgical History Date Name Laterality Status Provider Name and Address Organization Details Recorded Time excision of melanoma completed Yenny Crandall [facility] 04/23/2023 09:05:45 Imaging Results None recorded. Procedure Notes None recorded. Medical Equipment None Reported. Allergies Allergen ID Allergen Name Allergen Category Reaction Reaction Severity Criticality Documentation Date Start Date Code Code System Note Provider Name and Address Organization Details Recorded Time 891394 Substance with sulfonami de structure and antibacte rial mechanism of action (substanc e) medicatio n Not available Not available Not available 04/23/2023 57263 8003 SNOMED Yenny Goodman yancey [facility] 4 09:03:12 361214 Product containin g penicilli n (product) medicatio n Not available Not available Not available 04/23/2023 59430 8001 [facility]ED [facility] 09:03[facility]17 148672 latex environme nt,medica tion Not available Not available Not available 04/23/2023 95060 91 RxNorm [facility] 4 09:03:22 Medications Name Sig Start Date [...] Body mass index (BMI) Body height Systolic And Diastolic Provider Name and Address Organization Details Last Updated DateTime 4 84625.1 6 g 16 /min 108 /min 26.3 kg/m2 175.26 cm 129/78 mm[Hg] Yenny Crandall [facility] 4 09:02:53 Date Recorded Body height Provider Name an d Address Organization Details Last Updated DateTime 04/28/2024 175.26 cm Yenny Crandall [facility] 04/29/19 25 08:55:51 Date Recorded Body mass index (BMI) Body weight Heart rate Oxygen saturation Oxygen saturation in Arterial blood by Pulse oximetry Systolic And Diastolic Provider Name and Address Organization Details Last Updated DateTime 5 26.5 kg/m2 12742.7 5 g 70 /min 99 % 99 % 126/68 mm[Hg] Darrin Peña MA [facility] 5 09:04:50 Date Recorded Body height Body mass index (BMI) Body weight Heart rate Oxygen saturation Oxygen saturation in Arterial blood by Pulse oximetry Systolic And Diastolic Provider Name and Address Organization Details Last Updated DateTime 4 175.26 cm 25.7 kg/m2 16682.5 g 78 /min 98 % 98 % 132/70 mm[Hg] Oanh Mancia MA [facility] 4 17:31:44 Date Recorded Systolic And Diastolic Provider Name and Address Organization Details Last Updated DateTime 10/29/2023 120/80 mm[Hg] VALENTINO Tucker Attn: Accounting,[address] [place], [address], [facility] 10/29/2023 09:25:50 Date Recorded Body height Body mass index (BMI) Body weight Respiratory rate Oxygen saturation Oxygen saturation in Arterial blood by Pulse oximetry Heart rate Systolic And Diastolic Provider Name and Address Organization Details Last Updated DateTime 4 175.26 cm 26.3 kg/m2 75721.5 9 g 18 /min 97 % 97 % 64 /min 128/82 mm[Hg] Karen García MA [facility] 4 08:57:16 Social History Question Answer Notes LastModified by Organizat ion Details LastModified Time Tobacco Smoking Status Never Smoker Yenny Crandall naye, [facility] 04/23/2023 09:04:24 Do You Have An Advance Directive? Yes [email or web address] Information not available 04/23/2023 Are You Blind Or Do You Have Difficulty Seeing? Yes Reading Glasses [email or web address] Information not available 04/23/2023 What Is Your Level Of Caffeine Consumption? Heavy [email or web address] Information not available 04/23/2023 In The 14 Days Before Symptom Onset, Have You Had Close Contact With A Laboratory-confir med COVID-19 While That Case Was Ill? No [email or web address] Information not available 04/23/2023 In The 14 Days Before Symptom Onset, Have You Had Close Contact With A Person Who Is Under Investigation For COVID-19 While That Person Was Ill? No [email or web address] Information not available 04/23/2023 Have You Been To An Area Known To Be High Risk For COVID-19? No [email or web address] Information not available 04/23/2023 Are You Deaf Or Do You Have Serious Difficulty Hearing? No [email or web address] Information not available 04/23/2023 What Type Of Diet Are You Following? REGULAR [email or web address] Information not available 04/23/2023 Are There Any Guns Present In Your Home? Yes [email or web address] Information not available 04/23/2023 What Was The Date Of Your Most Recent Tobacco Screening? 04/28/2024 [email or web address] Information not available 04/28/2024 What Is Your Relationship Status? Information not available 04/23/2023 Do You Use Your Seat Belt Or Car Seat Routinely? Yes [email or web address] Information not available 04/23/2023 Do You Have Smoke And Carbon Monoxide Detectors In Your Home? Yes [email or web address] Information not available 04/23/2023 Do You Use Sunscreen Routinely? Yes [email or web address] Information not available 04/23/2023 Has Tobacco Cessation Counseling Been Provided? No [email or web address] Information not available 10/29/2023 Sex: Female Functional Status Question Answer Note LastModified by Organizat ion Details LastModified Time Do you use any illicit or recreational drugs? No [email or web address] Information not available 04/23/2023 Do you or have you ever used any other forms of tobacco or nicotine? No [email or web address] Information not available 04/23/2023 What is your level of alcohol consumption? Occasional Information not available 04/23/2023 Are you currently employed? No Information not available 04/23/2023 Are you able to care for yourself? Yes [email or web address] Information n ot available 04/23/2023 What is your exercise level? Moderate [email or web address] Information not available 04/23/2023 Mental Status Question Answer Note LastModified by Organization D etails LastModified Time Do you feel stressed (tense, restless, nervous, or anxious, or unable to sleep at night)? [id number] [email or web address] Information not available 10/05/2023 Family History Relationship Description Onset Age of this Age Resolved Age Notes LastModified by Organization Details LastModified Time Mother Lupus erythematosu s [email or web address] Not available 04/22 09:03:58 Mother Asthma [email or web address] Not available 04/23/2023 12:49:54 Mother Malignant tumor of breast [email or web address] Not available 2023 12:50:03 Father History of heart disorder [email or web address] Not available 04/22 09:04:10 Medical History Condition Response Coronary Artery Disease N Other N High Blood Pressure N Atrial Fibrillation N Thyroid Problems N Kidney or Bladder Problems N GI Problems N Depression N COPD N Blood Clots N Skin Problems Y Anemia N Heart Attack ([place]) N Diabetes N Anxiety Disorder N Muscle, Joint, or Bone Problems N Seizures/Epilepsy N Acid Reflux (GERD) N Stroke N Asthma Y Allergies Y High Cholesterol Y Hepatitis N Liver Disease N Headaches N Osteoporosis N Heart Failure N Gynecological History Statement/Question Response Menses Monthly N Obstetrics History GPAL:G 0 P 0 0 0 0 Immunizations Vaccine Type Date Status Note Provider Nam e and Address Organization Details Recorded Time Influenza, MDCK, quadrivalent, PF 2 completed NEELA [place], [place] [facility] 04/28/2024 09:03:08 Influenza, MDCK, quadrivalent, PF 3 completed [place] [facility] 04/28/2024 09:03:08 zoster recombinant 1 [place] [facility] 04/28/2024 09:03:08 MMR 9 completed [place] [facility] 04/28/2024 09:03:08 COVID-19, mRNA, LNP-S, PF, 30 mcg/0.3 mL dose 1 [place] [facility] 04/28/2024 09:03:08 COVID-19, mRNA, LNP-S, bivalent, PF, 30 mcg/0.3 mL dose 2 completed Darrin Peña [place], [place] [facility] 04/28/2024 09:03:08 COVID-19, mRNA, LNP-S, PF, sanjuanita-sucrose, 30 mcg/0.3 mL 3 completed Darrin Pe[place] [facility] 04/28/2024 09:03:08 influenza, unspecified formulation 8 completed Darrin Pe[place] [facility] 04/28/2024 09:03:08 influenza, unspecified formulation 4 completed Darrin Pe[place] [facility] 04/28/2024 09:03:08 influenza, unspecified formulation 2 completed [place]EL[place] [facility] 04/28/2024 09:03:08 Influenza, split virus, trivalent, preservative 1 completed Darrin Pe[place] [facility] 04/28/2024 09:03:08 Hep A, [...] SNOMED-CT Code Diagnosis ICD10 Code Diagnosis Note [id number] Sudheer Hirsch MD [facility] [address] [place] [address] 04/23/2023 08:54:19 04/23/2023 09:55:42 Well controlled type 2 diabetes mellitus 171616614 E11.9 6.2% a1c. diet and exercise controlled . check next lab in oct. Hyperlipidemia 07757651 E78.5 LDL 163, HDL 58, patient does not want to start statin therapy. she is aware of diabetic risk reductions recommenda tions. Long-term drug therapy 634903169 Z79.899 cbc, cmp, b12, folate and thyroid panel due in Oct. heal th examination 335492264 Z00.01 wellness exam completed. labs ordered for october. current labs reviewed that patient brought from her recent portal. [id number] Sudheer Hirsch MD [facility] [place] [address] [place] [address] 10/05/2023 17:16:06 10/05/2023 17:43:05 Pain in right foot 5674212365 69828 M79.671 Check x-ray of the right foot three-view to evaluate for any stress fracture or soft tissue abnormalit ies. [id number] Sudheer Hirsch MD [facility] [address] [place] [address] 10/29/2023 08:47:13 10/29/2023 10:53:00 Closed fracture of second metatarsal bone 22574779 S92.321D due for baseline DEXA scan. Well contr olled type 2 diabetes mellitus 416839339 E11.9 6.3% A1c stable diet and exercise controlled repeat labs in January and April. Hyperlipidemia 63140651 E78.5 LDL 173, HDL 57. Patient is agreeable to low-dose rosuvastat in 5 mg at bedtime with repeat lipid in January and again in April. Ten year risk calculatio n does describe need for statin therapy, discussed this 10 year risk calculatio n with her Long-term drug therapy 131792185 Z79.899 Current labs have been reviewed and the next set of labs will be due in April before next appointmen t Body mass index 25-29 - overweight 062597045 Z68.26 BMI is 26.3 [id number] Sudheer Hirsch MD [facility] [address] [place] [address] 04/28/2024 08:48:45 04/28/2024 10:59:52 Body mass index 25-29 - overweight 412835301 Z68.26 BMI is 26.5 Overweight 851987547 E66 .3 Well contr olled type 2 diabetes mellitus 568646320 E11.9 6.5% a1c. Stable diet controlled , repeat labs in November Hyperlipidemia 12828467 E78.5 LDL 160, trigs 98, HDL 58, Totoal 235. Patient does not want to take statin therapy. We have decided to pursue CT coronary calcium scoring instead. We will await results to determine coronary risk and repeat fasting lipids in November Long-term drug therapy 970899113 Z79.899 Next lab set will be ordered in November heal th examination 252354755 Z00.01 wellness exam completed. Screening procedure 2012 [...] 10/17/2023 1 [facility] () Sudheer Alba [id number] Alessandra Alba 05/18/2024 1 [facility] () Alessandra Alba [id number] Alessandra Alba 05/18/2024 1 [facility] ( - PPO) Sudheer Alba [id number] Alessandra Alba 04/28/2024 1 [facility] () Alessandra Alba [id number] Alessandra Alba Notes Date Note Type Note [...] medication therapy. VALENTINO Tucker Attn: Accounting,[address] [facility], [place], [address], [facility] 05/03/2023 19:30:39 10/05/2023 text/html Musculoskeletal PainReported bypatient.Location:rig ht foot Quality:sharp Severity:worsening Duration:present <1 month [...] for evaluation. VALENTINO Tucker Attn: Accounting,[address] [facility], [place], [address], [facility] 10/12/2023 22:10:06 10/29/2023 text/html DiabetesReported bypatient.Notes:dietar y and exercise management for diabetes. A1c is up to 6.3%HyperlipidemiaRepo rted bypatient.Notes:pt has ran with High HDL but also higher LDL, ratios have been stable and she has preferred no medication therapy. Patient has seen Podiatry for recent foot fracture VALENTINO Tucker Attn: Accounting,[address] [facility], [place], [address], [facility] 11/15/2023 15:25:37 04/28/2024 text/html DiabetesReported bypatient.Notes:dietar y and exercise management for diabetes. A1c is up to 6.3%HyperlipidemiaRepo rted bypatient.Notes:pt has ran with High HDL but also higher LDL, ratios have been stable and she has preferred no medication therapy. VALENTINO Tucker Attn: Accounting,[address] [facility], [place], [address], [place] [facility] 05/16/2024 22:28:02 OBGyn Episode No OBEpisode recorded.
--- OUTSIDE RECORDS SUMMARY | 2024-08-26 11:02 | XMS_ITS | Clinical Summary ---
Author Organization [facility] [address] [place] [address] Care Team Providers Care Belt Knife Feeder Name Role Phone Kirsten Rojo Primary Care Pr ovider Encounters Date Type Department Care Team Description 05/27/2024 7:20 AM CDT - 05/27/2024 11:59 PM CDT Hospital Encounter [facility] [address] [place] [address] Hyperlipidemia, unspecified hyperlipidemia type Discharge Disposition: Discharge to home or self care from Last 3 Months Social History Tobacco Use Types Packs/Day Years Used Date Smoking Tobacco: Never Assessed Comments Unknown Sex and Gender Information Value Date Recorded Sex Assigned at Not on file 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 J Am Est[place]a Cardiol, 73 (24) (2019), pp. i066-i323 THIS IS AN ELECTRONICALLY VERIFIED FINAL REPORT 05/29/2024 3:41 PM - Electronically signed by Sudheer George M.D. MJ: MAGGI Report ID: [id number] Reading Location: [place] [address] Procedure Note Sudheer George MD - 05/29/2024 [...] Nov, 2 (9) . Lennie Diamond.Steve. Hammad, eLonie. Shae, et al. 2018 AHA/ACC/AACVPR/AAPA/ABC/ACPM/ADA/AGS/APhA/ASPC/NLA/PCNA guideline on the management of blood cholesterol: a report of the [place] [employer]/[place] [employer] Association Task Force on Clinical Practice Guidelines. J Am [place]a Cardiol, 73 (24) (2019), pp. z708-c373 THIS IS AN ELECTRONICALLY VERIFIED FINAL REPORT 05/29/2024 3:41 PM - Electronically signed by Sudheer George M.D. MJ: MAGGI Report ID: [id number] Reading Location: [place] [address] PROCEDURE S Final Result from Last 3 Months Insurance [facility] Care Teams Belt Knife Feeder Relationship Specialty Start Date End Date Kirsten oRjo PA [address] [place] [address] PCP - General Physician [employer] 10/29/23
--- OUTSIDE RECORDS SUMMARY | 2024-08-26 11:02 | XMS_ITS | Data Portability ---
Author Organization [employer], Main Office Address [address] [place] [address] Assessment No assessment recorded. Plan of Treatment Reminders Order Date Submit Date Provider Last Modified By Organization Details Last Modified Time Details Appointments None recorded . Lab HbA1c (hemoglo bin A1c), blood 023 02/20/19 24 [facility], [address], [place], [address], 4 17:51:32 CMP, serum or plasma 023 02/20/19 24 [email or web address] [facility], [address], [place], [address], 4 17:51:32 CBC w/ auto diff 023 02/20/19 24 [email or web address] [facility], [address], [place], [address], 4 17:51:32 lipid panel, serum 023 02/20/19 24 [facility], [address], [place], [address], 4 17:51:32 Referral None recorded . Procedures [...] with diabe tom: <7.0 Not Available [facility] ([facility]) [address] [facility], [place], [address], 01/17/2021 10:37:11 01/16/20 21 01/16/2021 LIPID PANEL WITH LDL/H DL RATIO cholesterol, total 258 mg/dL 100-19 9 above high normal Not Available [facility] ([facility]) [address] [place], [address], 01/17/2021 10:37:10 01/16/20 21 01/16/2021 LIPID PANEL WITH LDL/H DL RATIO triglyceride s 80 mg/dL 0-149 Not Available [facility] ([facility]) [address] [facility], [place], [address], 01/17/2021 10:37:10 01/16/20 21 01/16/2021 LIPID PANEL WITH LDL/H DL RATIO HDL cholesterol 69 mg/dL >39 Not Available [facility] ([facility]) [address] [place], [address], 01/17/2021 10:37:10 01/16/20 21 01/16/2021 LIPID PANEL WITH LDL/H DL RATIO VLDL cholesterol gordon 13 mg/dL 5-40 Not Available [facility] ([facility]) [address] [place], [address], 01/17/2021 10:37:10 01/16/20 21 01/16/2021 LIPID PANEL WITH LDL/H DL RATIO LDL chol calc ([facility]) 176 mg/dL 0-99 above high normal Not Available [facility] ([facility]) [address] [place], [address], 01/17/2021 10:37:10 01/16/20 21 01/16/2021 LIPID PANEL WITH LDL/H DL RATIO comment: inpatient services rn Not Available [facility] ([facility]) [address] [place], [address], 01/17/2021 10:37:10 01/16/20 21 01/16/2021 LIPID PANEL WITH LDL/H DL RATIO LDL/HDL ratio 2.6 ratio 0.0-3. 2 LDL/H DL Ratio Men Women 1/2 Avg.R isk 1.0 1.5 Avg.R isk 3.6 3.2 2X Avg.R isk 6.2 5.0 3X Avg.R isk 8.0 6.1 Not Available [facility] ([facility]) [address] [place], [address], 01/17/2021 10:37:10 01/16/20 21 01/16/2021 COMP. METAB OLIC PANEL (14) glucose 106 mg/dL 65-99 above high normal Not Available [facility] ([facility]) [address] [place], [address], 01/17/2021 10:37:09 01/16/20 21 01/16/2021 COMP. METAB OLIC PANEL (14) BUN 16 mg/dL 6-24 Not Available [facility] ([facility]) [address] [place], [address], 01/17/2021 10:37:09 01/16/20 21 01/16/2021 COMP. METAB OLIC PANEL (14) creatinine 0.82 mg/dL 0.57-1 .00 Not Available [facility] ([facility]) [address] [place], [address], 01/17/2021 10:37:09 01/16/20 21 01/16/2021 COMP. METAB OLIC PANEL (14) eGFR if nonafricn AM 79 mL/mi n/1.7 3 >59 Not Available [facility] ([facility]) [address] [place], [address], 01/17/2021 10:37:09 01/16/20 21 01/16/2021 COMP. METAB OLIC PANEL (14) eGFR if africn AM 91 mL/mi n/1.7 3 >59 In accor dance with recom menda tiaahsish from the NKF-A SN Task force , [facility] is in the proce ss of updat ing its eGFR calcu latio n to the 2020 CKD-E PI creat inine equat ion that estim ates kidne y funct ion witho ut a race varia ble. Not Available [facility] ([facility]) [address] [facility], [place], [address], 01/17/2021 10:37:09 01/16/20 21 01/16/2021 COMP. METAB OLIC PANEL (14) BUN/creatini ne ratio 20 9-23 Not Available [facility] ([facility]) [address] [facility], [place], [address], 01/17/2021 10:37:09 01/16/20 21 01/16/2021 COMP. METAB OLIC PANEL (14) sodium 141 mmol/ L 134-14 4 Not Available [facility] ([facility]) [address] [facility], [place], [address], 01/17/2021 10:37:09 01/16/20 21 01/16/2021 COMP. METAB OLIC PANEL (14) potassium 4.3 mmol/ L 3.5-5. 2 Not Available [facility] ([facility]) [address] [facility], [place], [address], 01/17/2021 10:37:09 01/16/20 21 01/16/2021 COMP. METAB OLIC PANEL (14) chloride 103 mmol/ L 96-106 Not Available [facility] ([facility]) [address] [facility], [place], [address], 01/17/2021 10:37:09 01/16/20 21 01/16/2021 COMP. METAB OLIC PANEL (14) carbon dioxide, total 21 mmol/ L 20-29 Not Available [facility] ([facility]) [address] [facility], [place], [address], 01/17/2021 10:37:09 01/16/20 21 01/16/2021 COMP. METAB OLIC PANEL (14) calcium 9.5 mg/dL 8.7-10 .2 Not Available [facility] ([facility]) [address] [facility], [place], [address], 01/17/2021 10:37:09 01/16/20 21 01/16/2021 COMP. METAB OLIC PANEL (14) protein, total 7.3 g/dL 6.0-8. 5 Not Available [facility] ([facility]) [address] [place], [address], 01/17/2021 10:37:09 01/16/20 21 01/16/2021 COMP. METAB OLIC PANEL (14) albumin 4.5 g/dL 3.8-4. 9 Not Available [facility] ([facility]) [address] [place], [address], 01/17/2021 10:37:09 01/16/20 21 01/16/2021 COMP. METAB OLIC PANEL (14) globulin, total 2.8 g/dL 1.5-4. 5 Not Available [facility] ([facility]) [address] [place], [address], 01/17/2021 10:37:09 01/16/20 21 01/16/2021 COMP. METAB OLIC PANEL (14) A/G ratio 1.6 1.2-2. 2 Not Available [facility] ([facility]) [address] [place], [address], 01/17/2021 10:37:09 01/16/20 21 01/16/2021 COMP. METAB OLIC PANEL (14) bilirubin, total 0.7 mg/dL 0.0-1. 2 Not Available [facility] ([facility]) [address] [facility], [place], [address], 01/17/2021 10:37:09 01/16/20 21 01/16/2021 COMP. METAB OLIC PANEL (14) alkaline phosphatase 99 IU/L 44-121 Ple ase note refer ence inter gavi holly e Not Available [facility] ([facility]) [address] [facility], [place], [address], 01/17/2021 10:37:09 01/16/20 21 01/16/2021 COMP. METAB OLIC PANEL (14) AST (SGOT) 18 IU/L 0-40 Not Available [facility] ([facility]) [address] [facility], [place], [address], 01/17/2021 10:37:09 01/16/20 21 01/16/2021 COMP. METAB OLIC PANEL (14) ALT (SGPT) 15 IU/L 0-32 Not Available [facility] ([facility]) [address] [place], [address], 01/17/2021 10:37:09 01/16/20 21 01/16/2021 CBC WITH DIFFE RENTI AL/PL ATELE T WBC 5.2 x10e3 /uL 3.4-10 .8 Not Available [facility] ([facility]) [address] [place], [address], 01/17/2021 10:37:09 01/16/20 21 01/16/2021 CBC WITH DIFFE RENTI AL/PL ATELE T RBC 5.33 x10e6 /uL 3.77-5 .28 above high normal Not Available [facility] ([facility]) [address] [facility], [place], [address], 01/17/2021 10:37:09 01/16/20 21 01/16/2021 CBC WITH DIFFE RENTI AL/PL ATELE T hemoglobin 15.5 g/dL 11.1-1 5.9 Not Available [facility] ([facility]) [address] [facility], [place], [address], 01/17/2021 10:37:09 01/16/20 21 01/16/2021 CBC WITH DIFFE RENTI AL/PL ATELE T hematocrit 46.7 % 34.0-4 6.6 above high normal Not Available [facility] ([facility]) [address] [place], [address], 01/17/2021 10:37:09 01/16/20 21 01/16/2021 CBC WITH DIFFE RENTI AL/PL ATELE T MCV 88 fL 79-97 Not Available [facility] ([facility]) [address] [facility], [place], [address], 01/17/2021 10:37:09 01/16/20 21 01/16/2021 CBC WITH DIFFE RENTI AL/PL ATELE T MCH 29.1 pg 26.6-3 3.0 Not Available [facility] ([facility]) [address] [place], [address], 01/17/2021 10:37:09 01/16/20 21 01/16/2021 CBC WITH DIFFE RENTI AL/PL ATELE T MCHC 33.2 g/dL 31.5-3 5.7 Not Available [facility] ([facility]) [address] [place], [address], 01/17/2021 10:37:09 01/16/20 21 01/16/2021 CBC WITH DIFFE RENTI AL/PL ATELE T RDW 13.2 % 11.7-1 5.4 Not Available [facility] ([facility]) [address] [place], [address], 01/17/2021 10:37:09 01/16/20 21 01/16/2021 CBC WITH DIFFE RENTI AL/PL ATELE T platelets 230 x10e3 /uL 150-45 0 Not Available [facility] ([facility]) [address] [facility], [place], [address], 01/17/2021 10:37:09 01/16/20 21 01/16/2021 CBC WITH DIFFE RENTI AL/PL ATELE T neutrophils 44 % not estab. Not Available [facility] ([facility]) [address] [facility], [place], [address], 01/17/2021 10:37:09 01/16/20 21 01/16/2021 CBC WITH DIFFE RENTI AL/PL ATELE T lymphs 40 % not estab. Not Available [facility] ([facility]) [address] [place], [address], 01/17/2021 10:37:09 01/16/20 21 01/16/2021 CBC WITH DIFFE RENTI AL/PL ATELE T monocytes 10 % not estab. Not Available [facility] ([facility]) [address] [facility], [place], [address], 01/17/2021 10:37:09 01/16/20 21 01/16/2021 CBC WITH DIFFE RENTI AL/PL ATELE T eos 5 % not estab. Not Available [facility] ([facility]) [address] [place], [address], 01/17/2021 10:37:09 01/16/20 21 01/16/2021 CBC WITH DIFFE RENTI AL/PL ATELE T basos 1 % not estab. Not Available [facility] ([facility]) [address] [place], [address], 01/17/2021 10:37:09 01/16/20 21 01/16/2021 CBC WITH DIFFE RENTI AL/PL ATELE T immature cells inpatient services rn Not Available [facility] ([facility]) [address] [place], [address], 01/17/2021 10:37:09 01/16/20 21 01/16/2021 CBC WITH DIFFE RENTI AL/PL ATELE T neutrophils (absolute) 2.3 x10e3 /uL 1.4-7. 0 Not Available [facility] ([facility]) [address] [facility], [place], [address], 01/17/2021 10:37:09 01/16/20 21 01/16/2021 CBC WITH DIFFE RENTI AL/PL ATELE T lymphs (absolute) 2.1 x10e3 /uL 0.7-3. 1 Not Available [facility] ([facility]) [address] [facility], [place], [address], 01/17/2021 10:37:09 01/16/20 21 01/16/2021 CBC WITH DIFFE RENTI AL/PL ATELE T monocytes(ab solute) 0.5 x10e3 /uL 0.1-0. 9 Not Available [facility] ([facility]) [address] [place], [address], 01/17/2021 10:37:09 01/16/20 21 01/16/2021 CBC WITH DIFFE RENTI AL/PL ATELE T eos (absolute) 0.3 x10e3 /uL 0.0-0. 4 Not Available [facility] ([facility]) [address] [facility], [place], [address], 01/17/2021 10:37:09 01/16/20 21 01/16/2021 CBC WITH DIFFE RENTI AL/PL ATELE T baso (absolute) 0.1 x10e3 /uL 0.0-0. 2 Not Available [facility] ([facility]) [address] [facility], [place], [address], 01/17/2021 10:37:09 01/16/20 21 01/16/2021 CBC WITH DIFFE RENTI AL/PL ATELE T immature granulocytes 0 % not estab. Not Available [facility] ([facility]) [address] [facility], [place], [address], 01/17/2021 10:37:09 01/16/20 21 01/16/2021 CBC WITH DIFFE RENTI AL/PL ATELE T immature grans (abs) 0.0 x10e3 /uL 0.0-0. 1 Not Available [facility] ([facility]) [address] [facility], [place], [address], 01/17/2021 10:37:09 01/16/20 21 01/16/2021 CBC WITH DIFFE RENTI AL/PL ATELE T NRBC inpatient services rn Not Available [facility] ([facility]) [address] [facility], [place], [address], 01/17/2021 10:37:09 01/16/20 21 01/16/2021 CBC WITH DIFFE RENTI AL/PL ATELE T hematology comments: inpatient services rn Not Available [facility] ([facility]) [address] [facility], [place], [address], 01/17/2021 10:37:09 01/16/20 21 01/16/2021 URINA LYSIS , ROUTI NE W/RFX specific gravity 1.017 1.005- 1.030 Not Available [facility] ([facility]) [address] [place], [address], 01/17/2021 10:37:08 01/16/20 21 01/16/2021 URINA LYSIS , ROUTI NE W/RFX pH 6.5 5.0-7. 5 Not Available [facility] ([facility]) [address] [place], [address], 01/17/2021 10:37:08 01/16/20 21 01/16/2021 URINA LYSIS , ROUTI NE W/RFX urine-color yellow yellow Not Available [facility] ([facility]) [address] [place], [address], 01/17/2021 10:37:08 01/16/20 21 01/16/2021 URINA LYSIS , ROUTI NE W/RFX appearance clear clear Not Available [facility] ([facility]) [address] [facility], [place], [address], 01/17/2021 10:37:08 01/16/20 21 01/16/2021 URINA LYSIS , ROUTI NE W/RFX WBC esterase 3+ negati ve abnormal Not Available [facility] ([facility]) [address] [facility], [place], [address], 01/17/2021 10:37:08 01/16/20 21 01/16/2021 URINA LYSIS , ROUTI NE W/RFX protein negati ve negati ve/tra ce Not Available [facility] ([facility]) [address] [facility], [place], [address], 01/17/2021 10:37:08 01/16/20 21 01/16/2021 URINA LYSIS , ROUTI NE W/RFX glucose negati ve negati ve Not Available [facility] ([facility]) [address] [facility], [place], [address], 01/17/2021 10:37:08 01/16/20 21 01/16/2021 URINA LYSIS , ROUTI NE W/RFX ketones negati ve negati ve Not Available [facility] ([facility]) [address] [facility], [place], [address], 01/17/2021 10:37:08 01/16/20 21 01/16/2021 URINA LYSIS , ROUTI NE W/RFX occult blood trace negati ve abnormal Not Available [facility] ([facility]) [address] [facility], [place], [address], 01/17/2021 10:37:08 01/16/20 21 01/16/2021 URINA LYSIS , ROUTI NE W/RFX bilirubin negati ve negati ve Not Available [facility] ([facility]) [address] [place], [address], 01/17/2021 10:37:08 01/16/20 21 01/16/2021 URINA LYSIS , ROUTI NE W/RFX urobilinogen ,semi-qn 0.2 mg/dL 0.2-1. 0 Not Available [facility] ([facility]) [address] [place], [address], 01/17/2021 10:37:08 01/16/2001/16/2021 URINA LYSIS , ROUTI NE W/RFX nitrite, urine negati ve negati ve Not Available [facility] ([facility]) [address] [place], [address], 01/17/2021 10:37:08 01/16/2001/16/2021 URINA LYSIS , ROUTI NE W/RFX microscopic examination see below: Micro scopi c was indic ated and was perfo rmed. Not Available [facility] ([facility]) [address] [place], [address], 01/17/2021 10:37:08 01/16/20 21 01/16/2021 URINA LYSIS , ROUTI NE W/RFX WBC 6-10 /hpf 0 - 5 abnormal Not Available [facility] ([facility]) [address] [place], [address], 01/17/2021 10:37:08 01/16/20 21 01/16/2021 URINA LYSIS , ROUTI NE W/RFX RBC 0-2 /hpf 0 - 2 Not Available [facility] ([facility]) [address] [place], [address], 01/17/2021 10:37:08 01/16/20 21 01/16/2021 URINA LYSIS , ROUTI NE W/RFX epithelial cells (non renal) 0-10 /hpf 0 - 10 Not Available [facility] ([facility]) [address] [facility], [place], [address], 01/17/2021 10:37:08 01/16/20 21 01/16/2021 URINA LYSIS , ROUTI NE W/RFX epithelial cells (renal) inpatient services rn Not Available [facility] ([facility]) [address] [facility], [place], [address], 01/17/2021 10:37:08 01/16/20 21 01/16/2021 URINA LYSIS , ROUTI NE W/RFX casts none seen /lpf none seen Not Available [facility] ([facility]) [address] [facility], [place], [address], 01/17/2021 10:37:08 01/16/20 21 01/16/2021 URINA LYSIS , ROUTI NE W/RFX cast type inpatient services rn Not Available [facility] ([facility]) [address] [facility], [place], [address], 01/17/2021 10:37:08 01/16/20 21 01/16/2021 URINA LYSIS , ROUTI NE W/RFX crystals inpatient services rn Not Available [facility] ([facility]) [address] [facility], [place], [address], 01/17/2021 10:37:08 01/16/20 21 01/16/2021 URINA LYSIS , ROUTI NE W/RFX crystal type inpatient services rn Not Available [facility] ([facility]) [address] [facility], [place], [address], 01/17/2021 10:37:08 01/16/20 21 01/16/2021 URINA LYSIS , ROUTI NE W/RFX mucus threads inpatient services rn Not Available [facility] ([facility]) [address] [facility], [place], [address], 01/17/2021 10:37:08 01/16/20 21 01/16/2021 URINA LYSIS , ROUTI NE W/RFX bacteria few none seen/f ew Not Available [facility] ([facility]) [address] [facility], [place], [address], 01/17/2021 10:37:08 01/16/20 21 01/16/2021 URINA LYSIS , ROUTI NE W/RFX yeast inpatient services rn Not Available [facility] ([facility]) [address] [facility], [place], [address], 01/17/2021 10:37:08 01/16/20 21 01/16/2021 URINA LYSIS , ROUTI NE W/RFX trichomonas inpatient services rn Not Available [facility] ([facility]) [address] [facility], [place], [address], 01/17/2021 10:37:08 01/16/20 21 01/16/2021 URINA LYSIS , ROUTI NE W/RFX comment inpatient services rn Not Available [facility] ([facility]) [address] [facility], [place], [address], 01/17/2021 10:37:08 01/16/20 21 01/17/2021 URINA LYSIS , ROUTI NE W/RFX creatinine, urine 63.0 mg/dL not estab. Not Available [facility] ([facility]) [address] [facility], [place], [address], 01/17/2021 10:37:08 01/16/20 21 01/17/2021 URINA LYSIS , ROUTI NE W/RFX protein,tota l,urine 6.0 mg/dL not estab. Not Available [facility] ([facility]) [address] [facility], [place], [address], 01/17/2021 10:37:08 01/16/20 21 01/17/2021 URINA LYSIS , ROUTI NE W/RFX protein/crea t ratio 95 mg/g_ creat 0-200 Not Available [facility] ([facility]) [address] [facility], [place], [address], 01/17/2021 10:37:08 01/17/2012/14/2020 MAMMO , scree natanael, digit al, bilat eral No observ ation record ed. [id number] [facility] [place] [address], [place], [address], 04/16/2022 05:02:18 04/24/19 23 02/06/2021 colon oscop y scree natanael (PROC ) No observ ation record ed. BARCODE Not Available 2022 08:34:57 08/21/1905/05/2022 MAMMO , scree natanael, digit al, bilat eral No observ ation record ed. [email or web address] [facility] [place] [address], [place], [address], 08/26/2022 16:35:42 Result Notes None recorded. Problems Name Problem SNOMED Code Status Onset Date Resolution Date Notes Provider Name and Address Organization Details Recorded Time Dysfunction of eustachian tube 41309221 Active 2022 Not Available [facility] 3 11:52:55 Well controlled type 2 diabetes mellitus 313961028 Active 2022 Not Available [facility] 3 11:52:55 Acute left otitis media 947768342 Active 2022 Not Available [facility] 3 11:52:55 Malignant melanoma 963692397 Active 2018 Not Available [facility] 3 11:52:55 Type 2 diabetes mellitus 83025034 Active 2016 Not Available [facility] 3 11:52:55 Hyperlipidemi a 03527832 Active 2021 Not Available [facility] 3 11:52:55 Problem Notes None recorded. Procedures Surgical History Date Name Laterality Status Provider Name and Address Organization Details Recorded Time [employer] Surgery completed Not Available [facility] 04/16/2022 04:42:59 Ablation completed Not Available [facility] 04:42:59 Imaging Results None recorded. Procedure Notes None recorded. Medical Equipment None Reported. Allergies Allergen ID Allergen Name Allergen Category Reaction Reaction Severity Criticality Documentation Date Start Date Code Code System Note Provider Name and Address Organization Details Recorded Time 7579 Substance with sulfonami de structure and antibacte rial mechanism of action (substanc e) medicatio n Not available Not available Not available 04/16/2022 38319 8003 SNOMED Not Available [facility] 3 05:01:46 7580 Product containin g penicilli n (product) medicatio n Not available Not available Not available 04/16/2022 31686 8001 SNOMED Not Available [facility] 3 05:01:46 7581 latex environme nt,medica tion Not available Not available Not available 04/16/2022 12937 91 RxNorm Not Available [facility] 3 05:01:46 Medications Name Sig Start Date [...] Available Not Available Not Available Flucelvax Quad (PF) 60 mcg (15 mcg x 4)/0.5 [...] Heart rate Respiratory rate Body weight Systolic And Diastolic Provider Name and Address Organization Details Last Updated DateTime 3 25.3 kg/m2 175.26 cm 97 % 97 % 94 /min 16 /min 31364.3 g 120/78 mm[Hg] Not Available [facility] 3 04:43:36 Date Recorded Body height Body temperature Body mass index (BMI) Body weight Respiratory rate Oxygen saturation Oxygen saturation in Arterial blood by Pulse oximetry Heart rate Systolic And Diastolic Provider Name and Address Organization Details Last Updated DateTime 3 175.26 cm 97.7 [degF] 25.5 kg/m2 88852.4 8 g 16 /min 98 % 98 % 81 /min 122/78 mm[Hg] SARA Caldwell [employer] 3 09:17:47 Date Recorded Body height Body mass index (BMI) Body weight Body temperature Heart rate Oxygen saturation Oxygen saturation in Arterial blood by Pulse oximetry Systolic And Diastolic Provider Name and Address Organization Details Last Updated DateTime 3 175.26 cm 25.7 kg/m2 41118.0 7 g 97.9 [degF] 82 /min 98 % 98 % 122/68 mm[Hg] Rosey Soriano RN [email or web address] 3 09:27:02 Date Recorded Body mass index (BMI) Body height Oxygen saturation Oxygen saturation in Arterial blood by Pulse oximetry Heart rate Respiratory rate Body temperature Body weight Systolic And Diastolic Provider Name and Address Organization Details Last Updated DateTime 2 26.6 kg/m2 175.26 cm 98 % 98 % 85 /min 16 /min 97.2 [degF] 59473.3 5 g 120/72 mm[Hg] Not Available [facility] 3 04:43:36 Date Recorded Body mass index (BMI) Body height Oxygen saturation Oxygen saturation in Arterial blood by Pulse oximetry Heart rate Body temperature Body weight Systolic And Diastolic Provider Name and Address Organization Details Last Updated DateTime 1 26.3 kg/m2 175.26 cm 98 % 98 % 80 /min 97.8 [degF] 74305.8 8 g 110/70 mm[Hg] Not Available [facility] 3 04:43:36 Social History Question Answer Notes LastModified by Organizat ion Details LastModified Time Tobacco Smoking Status Never Smoker ELIZABETH Neal, BEE - [place] 08/13/2022 09:22:31 What Is Your Level Of Caffeine Consumption? Occasional [id number] Information not available 04/16/2022 How Much Tobacco Do You Chew? None [id number] Information not available 04/16/2022 In The 14 [...] Type Of Diet Are You Following? REGULAR [id number] Information not available 04/16/2022 Which Illicit Or Recreational Drugs Have You Used? None Information not available 08/13/2022 Have There Been Any Changes To Your Family Or Social Situation? No Information no t available 08/13/2022 Do You Use Insect Repellent Routinely? No Information not available 08/13/2022 What Is Your Relationship Status? [email or web address] Information not available 07/01/2022 Do You Use Your Seat Belt Or Car Seat Routinely? Yes Information not available 08/13/2022 Do You Have Smoke And Carbon Monoxide Detectors In Your Home? Yes Information not available 08/13/2022 How Much Tobacco Do You Smoke? No [id number] Information not available 04/16/2022 Do You Use [...] is your level of alcohol consumption? Occasional [id number] Information not available 04/16/2022 Do you or have you ever used smokeless tobacco? Never used smokeless tobacco [id number] Information not available 04/16/2022 Do you or have you ever used e-cigarettes or vape? Never used electronic cigarettes Information not available 08/13/2022 What is your exercise level? Moderate [id number] Information not available 04/16/2022 Mental Status None recorded. Family History Relationship Description Onset Age of this Age Resolved Age Notes LastModified by Organization Details LastModified Time Mother Lupus erythematosu s [id number] Not available 04/16/2022 04:43:01 Father Family history of ischemic heart disease [id number] Not available 04/16/2022 04:43:01 Paternal Grandfather Malignant tumor of colon [id number] Not available 04/16/2022 04:43:01 Maternal Grandmother Leukemia [id number] Not available 04/16/2022 04:43:01 Medical History Condition [...] unspecified formulation 3 completed SARA Caldwell null, [facility] 12/16/2022 15:13:02 SARS-COV-2 (COVID-19) vaccine, UNSPECIFIED 3 completed YennySARA Diana, [facility] 12/16/2022 15:13:13 SARS-COV-2 (COVID-19) vaccine, UNSPECIFIED 1 completed Not Available [facility] 04/16/2022 05:01:14 SARS-COV-2 (COVID-19) vaccine, UNSPECIFIED 1 completed Not Available [facility] 04/16/2022 05:01:14 influenza, unspecified formulation 0 completed Not Available [facility] 04/16/2022 05:01:14 Influenza, split virus, quadrivalent, preservative 0 completed Not Available [facility] 04/16/2022 05:01:14 Influenza, split virus, quadrivalent, preservative 2 completed Not Available [facility] 04/16/2022 05:01:14 zoster recombinant 2 completed Not Available [facility] 04/16/2022 05:01:14 zoster recombinant 1 completed Not Available [facility] 04/16/2022 05:01:14 COVID-19, mRNA, LNP-S, PF, 30 mcg/0.3 mL dose 1 completed Not Available [facility] 04/16/2022 05:01:15 Influenza, split virus, quadrivalent, preservative 9 completed Not Available [facility] 04/16/2022 05:01:15 influenza, unspecified formulation 8 completed Not Available [facility] 04/16/2022 05:01:15 Past Encounters Encounter ID Performer Location Encounter Start Date Encounter Closed Date Diagnosis/Indication Diagnosis SNOMED-CT Code Diagnosis ICD10 Code Diagnosis Note [id number] VALENTINO Tucker_[facility] [address] [place] [address] 07/11/2020 00:00:00 07/11/2020 10:11:46 [id number] VALENTINO Tucker_[facility] [address] [place] [address] 01/16/2021 00:00:00 02/11/2021 22:17:25 [id number] Sudheer Hirsch MD [facility] [address] [place] [address] 08/28/2021 00:00:00 09/15/2021 13:41:33 [id number] VALENTINO Tucker [facility] [address] [place] [address] 02/18/2022 00:00:00 03/16/2022 14:37:01 [id number] VALENTINO Tucker [facility] [address] [place] [address] 07/02/2022 09:08:21 07/02/2022 10:00:05 Dysfunction of eustachian tube 81183696 H69.92 there is small amount of wax close to TM but TM is visible and normal appearance . pt may flush with ear flush kit at home. start Nasonex to help with fluid behind TM. [id number] VALENTINO Tucker [facility] [address] [place] [address] 08/13/2022 09:21:35 08/13/2022 09:57:40 Well controlled type 2 diabetes mellitus 523800775 E11.9 excellent hx of diet and exercise management .current labs drawn yesterday and pending. labs for february 2023 ordered today Hyperlipidemia 14362031 E78.5 diet and exercise management . Long-term drug therapy [id number] Z79.899 Health Concerns Section Related Observation LastModified by Organization Detai ls LastModified Time None Recorded Concern Status LastModified by Organization Details LastModified Time None Recorded Advance Directives Directive None Recorded Payers Insurance Date Sequence Insurance Name Policy Number Policy Fatima Covered Member ID Fatima Member ID Guarantor Name 08/10/2022 1 [facility] [place] [facility] () Sudheer Alba [id number] Alessandra Alba Notes Date Note Type Note Provider Name and Address Organization Details Recorded Time 021 text/ht ml DiabetesReported bypatient.Notes:diet controlled. has been very successful managing.Generic HPI TemplateReported bypatient.Notes:Pt is here today for her annual wellness exam, doing fine, no complaintsHyperlipidemiaReported bypatient.Notes:pt does not want medication. she diet controls and keeps HDL up Not Available [email or web address] 02/11/2021 22:17:25 022 text/ht ml DiabetesReported bypatient.Duration:chronic [...] no blurred vision; no paresthesias Not Available [email or web address] 09/15/2021 13:41:33 023 text/ht ml DiabetesReported bypatient.Duration:chronic [...] no cardiovascular disease Risk Factors:diabetes Not Available [email or web address] 03/16/2022 14:37:01 023 text/ht ml EaracheReported bypatient.Location:left;pain [...] problems;popping noise in the ears VALENTINO Tucker [address], [place], [address], [email or web address] 07/14/2022 23:58:35 023 text/ht ml DiabetesReported bypatient.Control:usually [...] f/u, no current medicine VALENTINO Tucker [address], [place], [address], [email or web address] 08/13/2022 10:16:27 OBGyn Episode No OBEpisode recorded.
== END 2024-08-26 10:56 | disposition home or self-care (01) ==
LOC: ANHIMG 10:56
PROVIDERS: PCP Physician Assistant; Visit Provider Obstetrics & Gynecology
DX: R92.8 Other abnormal and inconclusive findings on diagnostic imaging of breast (principal); N63.25 Unspecified lump in the left breast, overlapping quadrants
CPT/HCPCS: 76642; 77061; 77065; G0279